=== PATIENT | female | born 1960 | race Caucasian/White ===

== ENCOUNTER 2024-01-06 23:34 | Inpatient (IN) | payer MEDICARE, MEDICAID, SELFPAY ==
[2024-01-06] VITALS (19 sets, daily range): BP systolic 95–143; BP diastolic 82–114; BMI 32.0
[2024-01-06 20:57] LABS: % Basophils 0.5 % (0-2); % Eosinophils 0.2 % (0-6); % Immature Granulocytes 0.4 % (0-0.5); % Lymphocytes 8.5 % (20.5-51.1); % Monocytes 8.5 % (1.7-9.3); % Neutrophils 81.9 % (42.2-75.2); Absolute Basophils 0.1 10^3/uL (0-0.2); Absolute Immature Granulocytes 0.1 10^3/uL (0-0.05); Absolute Lymphocytes 1.1 10^3/uL (1.2-3.4); Absolute Monocytes 1.1 10^3/uL (0.1-0.6); Absolute Neutrophils 10.9 10^3/uL (1.4-6.5); Hematocrit 40.8 % (37.0-47.0); Hemoglobin 12.9 g/dL (12.0-16.0); Mean Corp Hgb Conc. 31.6 g/dL (33.0-37.0); Mean Corpuscular Hgb 24.4 pg (27.0-31.0); Mean Corpuscular Volume 77.1 fL (81.0-99.0); Mean Platelet Volume 11.3 fL (7.4-10.4); Nucleated Red Blood Cells % 0 %; Platelet Count 401 10^3/uL (130-400); Red Blood Cell Count 5.29 10^6/uL (4.20-5.40); Red Cell Dist. Width 16.2 % (11.5-14.5); White Blood Cell Count 13.4 10^3/uL (4.8-10.8)
--- NOTE | 2024-01-06 21:06 | ED.GENMED ---
History of Present Illness
General
Chief Complaint: Breathing Problem
Source: patient and other
Exam Limitations: none
Time Seen by Provider: 01/06/24 21:06
History of Present Illness
History of Present Illness:
63-year-old female short of breath for months. History of atrial fibrillation. She cannot feel the irregular heartbeat at this time but feels like she has been at significantly over the last 2 months. No chest pain no fever progressive shortness
of breath with exertion
Past History
Past History
ED Past Medical History: Arrthythmia, NIDDM and Other (Alcohol/substance abuse)
Review of Systems
Review of Systems
All Other Systems: Not applicable
Constitutional: Denies fever or chills
Cardiac: Denies chest pain or syncope
Phy Exam
Physical Exam
Physical Exam:
GENERAL: Alert and oriented in no apparent distress
EYE: Orbits normal.
NECK: Supple, no thyroid palpable
ENT: Pharynx without erythema
CARDIAC: Tachycardic and irregular
LUNGS: Moderate tachypnea with exertion. Moderate pursed lip breathing. Bilateral rails
ABDOMEN: Soft, without focal tenderness or distention
NEUROLOGICAL: Alert and oriented , grossly non-focal
SKIN: Warm and dry, no rash or lesion, no discoloration, skin intact.
MUSCULOSKELETAL: Mild bilateral lower extremity pitting edema,no deformity.Good color
PSYCH: Normal and appropriate interaction.
Scores
Heart Failure Risk
Heart Failure Risk Score: Yes
History of Stroke or TIA: No
History of intubation for respiratory distress: No
Heart rate on ED arrival >/= 110: Yes
SaO2 <90% on arrival on room air: No
HR >/=110 during 3min walk test (or too ill to perform test): Yes
ECG has acute ischemic changes: No
Urea >/=12mmol/L (BUN 33.6mg/dL): No
Serum CO2>/=35mmol/L: No
Troponin I or T elevated to MO Level (0.4mg/dL): No
NT-proBNP >/=5,000ng/L (5,000pg/ml): Yes
HF Risk Score: 3
Admission Status: HIGH RISK 15.9% Consider SNF treatment or admission to hospital
Course
Orders/Labs/Results
Orders:
Orders
01/06/24 20:35
Electrocardiogram (*1) Urgent
Reason for Study: Abdominal Pain
EKG- Treatment ONCE
01/06/24 20:51
Complete Blood Count/With Diff Urgent
Comprehensive Metabolic Panel Urgent
Lipase Urgent
Comment: ADDON
TSH Reflex To Free T4 Urgent
Comment: ADDON
01/06/24 21:20
Add On- LAB Urgent
Tests Added?: Probnp.lipase. tsh reflex t4
CXR Port [CR Chest Portable - 1 View] Urgent
Comment:
Reason For Exam: sob
Reason Study Needs to be Portable: Unable to Transport
01/06/24 21:37
NT-proBNP Urgent
Comment: ADDON
Troponin I Urgent
01/06/24 21:46
Diltiazem 125 mg/125 ml Nss [Cardizem] 125 mg in 125 ml IV NOW
Initial dose in mg/hr, then titrate:: 5
Titrate to keep:: Heart rate 80-100 bpm
Titrate by mg/hr:: 5 mg/hr
Frequency of titrations (minutes):: 15
Maximum dose in mg/hr:: 15
Diltiazem HCl [Cardizem] 10 mg IV NOW STA
01/06/24 22:13
Furosemide [Lasix] 40 mg IV NOW STA
01/06/24 23:00
Admit/Transfer Patient As Directed
Co-Sign Provider:
Level of Care: Inpatient admission
Assign to:: IVU
Physician / Group: Hospitalist
Diagnosis: Rapid atrial fibrillation, CHF
Reason for Hospitalization: Uncontrolled AFIB, CHF
Expected length of stay greater than two midnights?: Yes
ELOS- Estimated Length of Stay in days: 2
I certify the patient meets the requirements for IP care: Yes
Flush (0.9% Sodium Chloride) [Flush (Nss)] See Dose Instructions IV PER PROTOCOL
PRN Pain Medication Management As Directed
May give lesser potent ordered pain med per pt: Yes
preference::
Protocol:: Medication orders for pain may be administered in a
manner that supports deferring to patient preference
when the pt is:
- Requesting an ordered lesser potent pain medication.
Least to most potent pain medications are defined
as: acetaminophen < NSAID < tramadol < opioids
(morphine, oxycodone, hydromorphone).
- Requesting a lesser dose of the same medication IF
ORDERED.
- Requesting a less intrusive route of administration
if both routes are prescribed by the provider (PO <
IV).
01/06/24 23:01
Code Status As Directed
Resuscitation Status: Full Code
Abnormal Lab Results
01/06/24 01/06/24
20:51 21:37
WBC 13.4 H 10^3/uL
(4.8-10.8)
MCV 77.1 L fL
(81.0-99.0)
MCH 24.4 L pg
(27.0-31.0)
MCHC 31.6 L g/dL
(33.0-37.0)
RDW 16.2 H %
(11.5-14.5)
Plt Count 401 H 10^3/uL
(130-400)
MPV 11.3 H fL
(7.4-10.4)
Abs Immat Gran (auto) 0.1 H 10^3/uL
(0-0.05)
Absolute Neuts (auto) 10.9 H 10^3/uL
(1.4-6.5)
Absolute Lymphs (auto) 1.1 L 10^3/uL
(1.2-3.4)
Absolute Monos (auto) 1.1 H 10^3/uL
(0.1-0.6)
Neutrophils % 81.9 H %
(42.2-75.2)
Lymphocytes % 8.5 L %
(20.5-51.1)
Potassium 5.4 H mmol/L
(3.5-5.1)
Carbon Dioxide 21 L mmol/L
(22-30)
BUN 21 H mg/dl
(7-17)
Glucose 136 H mg/dl
(70-99)
Total Bilirubin 1.9 H mg/dl
(0.2-1.3)
AST 48 H U/L
(14-36)
ALT 40 H U/L
(0-35)
Troponin I 0.084 H* ng/ml
01/06/24 20:51
01/06/24 20:51
Vital Signs
Initial and Last Documented VS:
Initial Vital Signs
Temp Pulse Resp BP Pulse Ox
98 F 122 18 143/100 99
01/06/24 20:36 01/06/24 20:36 01/06/24 20:36 01/06/24 20:36 01/06/24 20:36
Last Documented Vital Signs
Temp Pulse Resp BP Pulse Ox
98 F 117 23 138/96 95
01/06/24 20:36 01/07/24 00:31 01/07/24 00:15 01/07/24 00:31 01/07/24 00:10
*Radiology
Radiology exam reviewed: preliminary read by ED provider (CHF)
*Pulse Oximetry
Patient hypoxic: no
*EKG
Interpreted by ED Provider?: Yes
Interpretation: abnormal
Comparison EKG: no comparison EKG present
Heart Rate: 141
Rate: tachycardiac
Rhythm: atrial flutter
[place]: normal axis
Interval: normal interval
QRS Pattern: normal QRS
Ischemia: non-specific ST changes
*Critical Care Note
Total Time (30-74mins, 75-104mins- exclusive of procedures): 45
Update Note
Update Note:
Heart rate being monitored while Cardizem is being given. Heart rate down to about 110-115. Lasix ordered. Blood pressure transiently low but rebounded.
ED Attending Note
-
Portions of this chart may have been created with voice recognition software.� Occasional wrong word or��sound alike� substitutions may have occurred due to the inherent limitations of voice recognition software.
Discharge Plan
Departure
Patient Disposition: Admit
Date of Disposition: 01/06/24
Time of Disposition: 22:14
Presentation/result/management discussed w/ accepting MD/DO: Hospitalist
Discharge Problem:
Atrial flutter/RVR, CHF
Interventions
Interventions:
*Risk Screen - Suicide Last Done: 01/06/24 20:36
*General Assessment Last Done: 01/06/24 22:12
*Neglect/Abuse Screening Last Done: 01/06/24 22:12
ED- Fall Risk Assessment Last Done: 01/06/24 23:52
*ED COVID-19 Vaccine History Last Done: 01/06/24 22:12
ED- Cardiac Assessment Last Done: 01/06/24 21:46
ED- Pulmonary Assessment Last Done: 01/06/24 21:46
[2024-01-06 21:14] LABS: ALT (SGPT) 40 U/L (0-35); AST (SGOT) 48 U/L (14-36); Albumin 4.4 g/dl (3.5-5.0); Alkaline Phosphatase 78 U/L (38-126); Blood Urea Nitrogen 21 mg/dl (7-17); Calcium 9.7 mg/dl (8.4-10.2); Carbon Dioxide 21 mmol/L (22-30); Chloride 102 mmol/L (98-107); Glucose 136 mg/dl (70-99); Potassium 5.4 mmol/L (3.5-5.1); Sodium 140 mmol/L (135-145); Total Bilirubin 1.9 mg/dl (0.2-1.3); Total Protein 6.6 g/dl (6.3-8.2); eGFR > 60.00
[2024-01-06 22:02] LABS: Lipase 73 U/L (23-300)
[2024-01-06] MEDS: CARDIZEM 10 MG IV (22:04)
[2024-01-06] MEDS: CARDIZEM 125 IV (22:08)
[2024-01-06 22:12] LABS: NT-proBNP 16200 pg/ml; Troponin I 0.084 ng/ml
[2024-01-06 22:43] LABS: TSH Reflex To Free T4 1.03 uIU/ml (0.47-4.68)
--- NOTE | 2024-01-06 22:48 | HPS.HSE ---
Family Physician
-
Family Physician: * NONE
Chief Complaint
-
Lower extremity swelling and shortness of breath
History of Present Illness
This is a 63-year-old female who has prior history of proximal atrial fibrillation hypertension and history of remote opioid dependence on daily methadone who presents to the emergency department with worsening dyspnea on exertion, shortness of
breath and lower extremity swelling.
Patient is a somewhat poor story and. She reports that around September she was seen in the hospital in month mild continue ADINA for similar symptoms. At that time she was diagnosed with rapid atrial fibrillation. She is status post ablation. She
reports that she was placed on medications on anticoagulation. The ablation was not entirely successful at the time and she had recurrent symptoms. She eventually lost to follow-up. She also ran out of her medications including stopping her
anticoagulation. She reports that she recently moved to [place] from [place] and has not been able to fill her prescription medications. She is not aware of all her medications. She reports that she was told she was prediabetes but is not
on any diabetic medications. She was at 1 point on statin but not currently taking any. She denies prior history of hypertension or congestive heart failure.
She reports that she has had dyspnea on exertion over weeks. More recently she been having more shortness of breath at rest and increasing lower extreme edema so she decided to come to the emergency department. She denies having any chest pain
lightheadedness or dizziness. She denies nausea or vomiting. She denies any new drug use. Patient currently staying with the father. Denies tobacco use
Emergency department the patient was afebrile blood pressure was 100/80, she was in rapid A-fib at a rate of 120. Oxygen saturation was 97% on room air. ECG shows atrial flutter with variable conduction and a rate of 141 versus atrial
fibrillation. No acute ST or T wave changes. QT is 450. Chest x-ray shows a small to moderate left pleural effusion and increased interstitial markings and cephalization. No cardiomegaly by my review. She has a white count of 13,000 with normal
hemoglobin and platelet counts. Chemistries are unremarkable. Total bilirubin is slightly elevated at 1.9 with some slight uptake in LFTs. Troponin is 0.084. BNP was elevated at 16,000. TSH within normal limits.
Medical History
Past Medical History
Past Medical History: Reports Arrhythmia (paroxysmal atrial fibrillation s/p ablation) and Hypercholesterolemia
Past Surgical History: Reports None
Social History
Tobacco: Former Smoker
Alcohol: None
Drug: Former User (opioid dependence)
Personal: Single
Living: With Family
Employment: Not Employed
Family History
Family History: Not pertinent
Allergies / Home Medications
Allergies reflects when Allergies were last updated in [facility].
Home Medications with original date entered in [facility]
Allergy/Medication List:
Allergies
Allergy/AdvReac Type Severity Reaction Status Date / Time
No Known Allergies Allergy Unverified 01/06/24 20:35
Home Medications
methadone 27 mg DAILY 01/06/24
metoprolol succinate 100 mg tablet,extended release 24 hr 100 mg PO DAILY 01/06/24
Review of Systems
-
History Source: Patient
Constitutional: Reports No Symptoms
EENT: Reports No Symptoms
Respiratory: Reports Trouble Breathing
Abdomen/GI: Reports No Symptoms
: Reports No Symptoms
Musculoskeletal: Reports Edema
Skin: Reports No Symptoms
Neurological: Reports No Symptoms
Endocrine: Reports No Symptoms
Hematologic/Lymphatic: Reports No Symptoms
Psych: Reports No Symptoms
Physical Exam
Vital Signs
Vital Signs
Temp Pulse Resp BP Pulse Ox
98 F 115 22 122/82 96
01/06/24 20:36 01/06/24 22:27 01/06/24 22:27 01/06/24 22:27 01/06/24 22:27
Physical Exam
General: Well Developed, Well Nourished, No Apparent Distress and Comfortable
HEENT: NormoCephalic, Anicteric, Moist mucous membranes and Atraumatic
Respiratory: Clear
Cardiac: S1/S2, Irregular Rhythm and Tachycardia
Breast: Deferred by me
GI: Soft, Non Tender, Non Distended and Normal Bowel Sounds
Rectal: Deferred by Provider
Genito-urinary: Deferred by me
Musculoskeletal: No Clubbing, No Cyanosis, Edema, Left Lower Extremity and Edema, Right Lower Extremity
Skin: Warm
Neuro: AO x 3
Hematologic/Lymphatic: No Lymphadenopathy
Psych: Calm
Laboratory Results
-
01/06/24 20:51
01/06/24 20:51
Laboratory Results
Total Bilirubin 1.9 mg/dl (0.2-1.3) H 01/06/24 20:51
AST 48 U/L (14-36) H 01/06/24 20:51
ALT 40 U/L (0-35) H 01/06/24 20:51
Alkaline Phosphatase 78 U/L (38-126) 01/06/24 20:51
Troponin I 0.084 ng/ml H* 01/06/24 21:37
Lipase 73 U/L (23-300) 01/06/24 20:51
Data Reviewed
-
Diagnostic Radiology: Image Personally Visualized and interpreted
Medical Tests (Nuc Med, Echo, EKG etc): Image Personally Visualized and interpreted
Lab Data: Labs Reviewed by me
Old Records: Requested
Impression/Plan
-
IMPRESSION:
63-year-old female with past medical history of opiate dependence currently on methadone, history of paroxysmal atrial fibrillation status post ablation in who presented to the emergency department with worsening dyspnea on exertion,
shortness of breath and increasing lower extremity edema. Comes into the emergency department and found to be in rapid atrial fibrillation at a rate of 141, mild troponin elevation of 0.084, found to have pulmonary edema on chest x-ray. Has
elevated BNP.
PLAN:
1. Uncontrolled AFIB -patient with uncontrolled A-fib likely secondary to medication noncompliance. History of ablation in September. History of anticoagulation but not currently anticoagulated or on any medication for her cardiac condition. Currently
hemodynamically stable but in obvious symptomatic congestive heart failure.
- admit to IVU
- continue diltiazem gtt for now
- restart low dose metoprolol with hold parameters
- AC with apixaban for now depending on repeat troponin
- npo except meds tonight pending possible need for cardioversion
- cardiology consultation.
2. ACHF - Likely secondary to uncontrolled afib. No prior h/o overt CHF.
- lasix 40mg in ED, will continue 40mg iv daily for now
- metoprolol as above
- holding further GDMT pending echo
- pending echo may benefit from SGLT II addition
3. Troponin Elevation - Trop 0.084. No acute ischemia on ECG. Suspect rate related elevation. No chest pain.
- aspirin 324 x 1
- trend troponin
- will start apixaban in am if trop stable otherwise will place on heparin gtt
4. Medical eval
- check u/a lipid panel and a1c for possible DM II
5. Methadone
- continue 25mg daily
- monitor qtc (currently 456)
DVT PPX - on ac
Code Status - Full Code
--- NOTE | 2024-01-06 22:48 | PHANOTE ---
med rec tech(01/06/24)-Patient unable to recall her medications, left her list at home. Not pharmacy records in [facility] and no [facility] records due to her recent moving here from [place]. Unable to call previous pharmacy given late time of day. Unable to
complete med rec at this time.
[2024-01-06] MEDS: LASIX 40 MG IV (22:53)
[2024-01-07] VITALS (13 sets, daily range): BP systolic 100–162; BP diastolic 73–149; BMI 28.8; BMI 28.4
--- NOTE | 2024-01-07 01:51 | PTCARENOTE ---
Pt rec'd on unit from ED just before 0100 awake,alert on Iv Cardizem gtt at 15 mg/hr. Afib low 100's on telemetry. Pt voided twice so far on unit post lasix; clear yellow urine. Adm hx taken and recorded. Pt remains npo for poss CV in am.
--- NOTE | 2024-01-07 05:11 | PTCARENOTE ---
Pt remains in afib/flutter with pvc's rates 60-70, Cardizem gtt decreased to 5 mg/hr
--- NOTE | 2024-01-07 05:27 | PTCARENOTE ---
Mehran heard from next patients room, when investigating pt was standing at bedside. She stated 'I'm not sure what happened I think I was too close to edge of bed. Pt reports hitting left knee only. No bruise or swelling noted. Pt denies hitting her
head. vs taken. Pt remains in afib/flutter
[2024-01-07 05:36] LABS: Hematocrit 38.6 % (37.0-47.0); Hemoglobin 12.3 g/dL (12.0-16.0); Mean Corp Hgb Conc. 31.9 g/dL (33.0-37.0); Mean Corpuscular Hgb 24.2 pg (27.0-31.0); Mean Corpuscular Volume 75.8 fL (81.0-99.0); Mean Platelet Volume 11.1 fL (7.4-10.4); Platelet Count 305 10^3/uL (130-400); Red Blood Cell Count 5.09 10^6/uL (4.20-5.40); White Blood Cell Count 9.2 10^3/uL (4.8-10.8)
[2024-01-07 05:47] LABS: Blood Urea Nitrogen 22 mg/dl (7-17); Calcium 9.6 mg/dl (8.4-10.2); Carbon Dioxide 28 mmol/L (22-30); Chloride 98 mmol/L (98-107); Estimated Creatinine Clearance 78 ml/min; Glucose 91 mg/dl (70-99); HDL Cholesterol 35 mg/dl; LDL Cholesterol, Calculated 89 mg/dl; Magnesium 1.8 mg/dl (1.6-2.3); Potassium 4.3 mmol/L (3.5-5.1); Sodium 139 mmol/L (135-145); Total Cholesterol 141 mg/dl (50-199); Triglyceride 86 mg/dl (10-149); Very Low Density Lipoprotein 17 mg/dl (0-30); eGFR > 60.00
[2024-01-07 06:02] LABS: Troponin I 0.081 ng/ml
--- NOTE | 2024-01-07 06:24 | W.PN.UPDATE ---
Addendum entered and electronically signed by LORETO Vargas 01/07/24 06:42:
Correction
Patient landed on the LT knee and Redness noted to the LT knee
Original Note:
Update Note
Progress Note Update
-Unwitnessed fall reported by the nursing staff. Patient denies hitting her head.
-Per patient, she was sitting on the edge and the bed and she fell a sleep, landed on her RT knee.
-Patient is alert and oriented x 3, RUE and RLE with FROM. Some redness noted to the RT knee during exam. Denies pain.
-Vital signs within normal limits.
-Fall precautions and neuro check ordered per protocol.
--- NOTE | 2024-01-07 07:31 | CON.CAR ---
Addendum entered and electronically signed by Mala Cuevas DO 01/07/24 18:09:
[facility] and reviewed. Patient was admitted from September 12 to September 16, 2023 with shortness of breath and wheezing for 1 week found to be in atrial fibrillation with rapid ventricular response. She states that she
was diagnosed 3 years ago with rapid atrial fibrillation. At the time of her admission she was not on any medications including anticoagulation. She was seen by cardiology during this hospitalization. She required IV Cardizem drip, 1 dose of
digoxin and IV amiodarone for rapid rates. She had a transesophageal echocardiogram which reported ejection fraction severely reduced estimated 30-35% with normal regional wall motion. Mildly dilated left atrium. No thrombus in left atrial
appendage. Interatrial septum was intact with agitated saline. Right ventricle normal size and function. Mild aortic regurgitation. Moderate mitral regurgitation. Mild tricuspid regurgitation. No pericardial effusion. She subsequently
underwent attempts at DC cardioversion which were unsuccessful at 250 J, 300 J, 360 J x 2. She was discharged on Eliquis 5 mg twice daily, aspirin 81 mg daily, metoprolol 100 mg daily, Entresto, Cymbalta 60 mg daily, Jardiance 10 mg daily,
metformin 1000 mg twice daily, rosuvastatin 5 mg daily and methadone, 26 mg daily. Pertinent lab work: Cholesterol 09/16/2023: Triglycerides 151, cholesterol 138, HDL 32, LDL 95. Hemoglobin 11.3. Platelets 250,000. Hemoglobin A1c 6.1%. Sodium
142, potassium 3.9. BUN/creatinine 13/0.95. LFTs within normal limits. Urine drug screen negative. Alcohol was not elevated . TSH within normal limits. MIXING PLANT OPERATOR swab was unremarkable. Influenza, COVID-negative. Chest x-ray shows enlarged cardiac
silhouette with heart failure.
Discussed prior hospital records and results of current studies with the patient and her father Wojciech who is at bedside. Overall she has little insight into her medical conditions however does state that she plans to stay in this area and is
agreeable to continuing medications and adhere to recommendations.
Plan:
Over the weekend we will continue rate control strategy for atrial fibrillation although may need addition of amiodarone. Continue Eliquis anticoagulation. If rate proved difficult to control could consider PRISCILA cardioversion next week
Toprol XL increased to 50 mg twice daily
Optimize goal-directed medical therapy for systolic heart failure. Continue IV Lasix. Start Farxiga 10 mg daily. Plan to start Entresto 24/26 mg twice daily if blood pressure allows.
Heart failure education
Eventual ischemic evaluation
Discussed the importance of compliance with medications, dietary restrictions, avoidance of alcohol and drugs, and follow-up
Will follow with you
Addendum entered and electronically signed by Mala Cuevas DO 01/07/24 08:36:
I saw and examined the patient.
The Baby Formula Mixer's note was reviewed and I agree with the note.
Comment: Patient is a 63-year-old female with past medical history of paroxysmal atrial fibrillation first diagnosed 3-4 years ago, hypertension, past opioid dependence[IV heroin use >20 year ago and remote poly substance abuse including cocaine]
now on daily methadone [[facility]] presented to ED 01/06/2024 with one week tachycardia, worsening dyspnea on exertion, shortness of breath, and lower extremity edema. She was admitted to [facility] in September for ~3 days with
rapid AF. She underwent a cardioversion and was started on Metoprolol ER 100 mg daily and Eliquis. In October, she relocated to this area from [facility]; she now resided with her father. She self discontinued all
medications in October or November after she ran out and admits that she has a history fo stopping her medications. She is a difficult historian. She was found to be in rapid A-fib with a heart rates up to 140 bpm. Troponin was 0.084, BNP 16,000, TSH
within normal limits. Chest x-ray showed small to moderate left pleural effusion and increased interstitial markings. She reports impporved edma and SOB with IV lasix yesterday. No chest pain/pressure, or current palpitation. No hx of bleeding on
OAC, CVA/TIA, cardiomyopathy or known CAD.
GEN: No distress, awake, Ox3. poor eye contact; skin picking during interview
HEENT: mmm
LUNGS: CTA, no wheezes/rales
CV: irreg, irreg, S1/S2, no murmur
ABD: soft, BS+, NT/ND
EXT: 1+ B/L LE edema
NEURO: Gross non-focal
Plan:
Plan:
1. Afib with hx PAF
-Plan fo rate control strategy until she demonstrates compliance
-rate controlled on Cardizem 5 mg/hr -will wean off and restart Toprol at 50 mg, watch HRs, if needed can uptitrate to 100 mg daily.
-started Eliquis 5 mg bid
-check echo today
-f/u with [facility] 2 weeks after discharge
-If AF persists, can plan for cardioversion, once anticoagulated x 3-4 weeks with no interruptions in anticoagulation
-Obtain OP records
2. HF in setting of rapid AF
-BNP 39196
-cont IV diuresis nexy 24-48 hours; anticipate transition to oral lasix
-echo today
-further med guidance based on results of echo
3. troponin elevation, suspect non-CT related in setting of HF/rapid AF
-no anginal symptom
-trend trop
-Consider OP ischemic evaluation
Try to obtain records from [facility] i
Original Note:
Consultation
Consultation Request
Date/Time Consultation Requested: 01/07/24104
Date/Time Consultation Performed: 01/07/24 0730
Requesting Provider: Dr Tucker
Performing Provider: LORETO Rosas for Dr Cuevas
Reason for Consultation: afib, heart failure
Medical History
-
Chief Complaint: LE edema and shortness of breath
History of Present Illness:
63-year-old female with past medical history of paroxysmal atrial fibrillation, hypertension, past opioid dependence now on daily methadone presented to ED 01/06/2024 with worsening dyspnea on exertion, shortness of breath, and lower extremity
edema. She was found to be in rapid A-fib with a heart rates up to 140 bpm. Troponin was 0.084, BNP 16,000, TSH within normal limits. Chest x-ray showed small to moderate left pleural effusion and increased interstitial markings.
She reports having atrial fibrillation 3 to 4 years ago and again in September 2023, when was seen at [facility]. She underwent a cardioversion and was started on Metoprolol ER 100 mg daily and Eliquis. It sounds like she stopped Eliquis
after 4-6 weeks after she ran out of pills but has continued on Metoprolol.
She was previously living in [place] and recently moved in with her father in this area. She had been homeless and living in motels for months prior to moving in with her father.
She was started on apixaban and diltiazem drip. She remains in atrial fibrillation with heart rates in the 80s to low 100s.
Past medical history:
Paroxysmal atrial fibrillation, status post cardioversion 10/03 at [facility], also with episode/hospitalization for afib 'a few years ago'
Hypertension
Hyperlipidemia
pre-DM
Former smoker
Former polysubstance drug abuse, currently on daily methadone
Depression
ADHD
Past Medical History
Past Medical History: Other (as above)
Past Surgical History: None
Social History
Tobacco: Former Smoker
Alcohol: None
Drug: Former User (Cocaine)
Personal: Single
Living: With Family
Family History
Family History: Reviewed & Not Pertinent
Allergies / Home Medications
Allergy/AdvReac Type Severity Reaction Status Date / Time
No Known Allergies Allergy Verified 01/07/24 01:30
�Medication �Instructions �Recorded �Confirmed �Type
methadone 27 mg DAILY Substance abuse 01/06/24 History
disorder
metoprolol succinate 100 mg 100 mg PO DAILY Blood Pressure 01/06/24 History
tablet,extended release 24 hr
Review of Systems
-
History Source: Patient
All other systems: Negative unless noted
Physical Exam
Vital Signs
Temp Pulse Resp BP Pulse Ox
98.0 F 83 18 122/88 95
01/07/24 04:55 01/07/24 05:00 01/07/24 04:55 01/07/24 04:54 01/07/24 04:55
Lab Results
01/07/24 05:02
01/07/24 05:02
Troponin I 0.081 ng/ml H* 01/07/24 05:02
Zyy-V-Irvavluzqgu Pept 48630 pg/ml 01/06/24 21:37
GEN: No distress, awake, Ox3
HEENT: supple, anicteric, mmm
LUNGS: CTA, no wheezes/rales
CV: irreg, irreg, S1/S2, no murmur
ABD: soft, BS+, NT/ND
EXT: 1+ B/L LE edema
NEURO: Gross non-focal
SKIN: No rash
Impression / Plan
-
PCP:seeing new PCP with DH on 01/10/24- looks like set up with [facility] Burg[facility] at [facility]
Primary mover helper:none
Impression:
A-fib with rapid ventricular response
Hypertension
Troponin elevation
Acute heart failure
pre-DM
Former drug abuse
Cardiovascular studies:
EKG 01/07/2024: Atrial fibrillation with PVC, nonspecific T wave abnormality, heart rate 74 bpm
telemetry: afib HRs 70s-low 100s, occ PVCs
Plan:
1. Afib-
-rate controlled on Cardizem 5 mg/hr -will wean off and restart Toprol at 50 mg, watch HRs, if needed can uptitrate to 100 mg daily. I put in order for Toprol and stopped Cardizem.
-started Eliquis 5 mg bid
-check echo today
-plan for cardioversion, once anticoagulated x 3-4 weeks with no interruptions in anticoagulation
-f/u with [facility] 2 weeks after discharge
-continue diuresis
2. HF-
-BNP 29582
-cont IV diuresis today, then consider transition to oral
-echo today
-further med guidance based on results of echo
3. troponin elevation
-no anginal symptom
-trend trop
Data Reviewed
-
EKG: Report Reviewed by me
Labs: Labs Reviewed by me and Discussed with Physician
--- NOTE | 2024-01-07 09:30 | CM ---
Addendum entered by Stephie De Jesus 01/07/24 16:08:
Telephone call to her insurance to check on co-pay for Entresto and Farxiga. Entresto and Farxiga both need a prior auth. Prior auth phone number is [phone]. After the prior auth. is completed and approved the medications Entesrto is $4.60 and
Farxiga is $4.60. Placed the one month free coupons for Entresto and Farxiga in her red discharge folder. Updated attending.
Addendum entered by Stephie De Jesus 01/07/24 11:21:
Telephone call to [facility] mail order to check on co-pay for Eliquis 5 mg po bid. Her co-pay would be $4.60 for a 90 day mail order and $4.60 for a thirty day supply via retail. Met with Ms. Khalil to review co-pay. She is agreeable to the
co-pay. Placed the one month free card in her red discharge folder.
Original Note:
Reviewed chart. Met with [facility] to review discharge plans. She states prior to admission she resides with her father and his spouse in a two story home with four steps to enter. She states she has a full flight of steps to get to bedroom/full
bathroom. She states there is a powder room on the first floor. She states prior to admission she was independent with ambulation and adls. She states she has a prescription plan and uses [facility]. She states she goes to the [facility]
in [place], [place] to rock picker her Methadone. She goes every two weeks to rock picker her Methadone. She states she has her Methadone for this weekend. Medical work-up in progress. The discharge plan is to return home with her father and his spouse
when medically stable.
[2024-01-07] MEDS: LASIX 40 MG IV (10:41)
[2024-01-07] MEDS: TOPROL XL 50 MG PO ×2 (10:41→20:15)
[2024-01-07] MEDS: ELIQUIS 5 MG PO ×2 (10:41→20:15)
[2024-01-07] MEDS: METHADONE 100 MG/10 ML 26 MG PO (10:42)
[2024-01-07 11:39] LABS: Urine Albumin Negative (Neg - Trace); Urine Bilirubin Negative (Negative); Urine Character Slightly Cloudy (Clear); Urine Color Yellow; Urine Glucose Negative (Negative); Urine Ketone Negative (Negative); Urine Leukocyte 2+ (Negative); Urine Nitrite Negative (Negative); Urine Occult Blood Trace (Negative); Urine Urobilinogen Negative (Neg - 1+); Urine pH 6.5 (5.0-9.0)
[2024-01-07 12:14] LABS: Urine Squamous Cell 16-20 /LPF (Few); Urine Urothelial Cell 0-2 /LPF (FEW)
[2024-01-07 12:15] LABS: Urine White Cell 30-40 /HPF (0-5)
--- NOTE | 2024-01-07 15:37 | W.PN.HOSP.TC ---
Today's Communication/Plan
-
monitor HR- titrate up bb as needed
anticoag
Lasix
SGLT2i and Entresto pricing
Assessment / Plan
Assessment / Plan
Physical Exam
General: Well Developed, Well Nourished, No Apparent Distress and Comfortable
HEENT: NormoCephalic, Anicteric, Moist mucous membranes and Atraumatic
Respiratory: Clear
Cardiac: S1/S2, Irregular Rhythm and Tachycardia
Breast: Deferred by me
GI: Soft, Non Tender, Non Distended and Normal Bowel Sounds
Rectal: Deferred by Provider
Genito-urinary: Deferred by me
Musculoskeletal: No Clubbing, No Cyanosis, Edema, Left Lower Extremity and Edema, Right Lower Extremity
Skin: Warm
Neuro: AO x 3
Hematologic/Lymphatic: No Lymphadenopathy
Psych: Calm
63-year-old female with past medical history of opiate dependence currently on methadone, history of paroxysmal atrial fibrillation status post ablation in September/October who presented to the emergency department with worsening dyspnea on exertion,
shortness of breath and increasing lower extremity edema. Comes into the emergency department and found to be in rapid atrial fibrillation at a rate of 141, mild troponin elevation of 0.084, found to have pulmonary edema on chest x-ray. Has
elevated BNP.
PLAN:
1. PAF
-non compliance
-Ablation in september
-stop amio ggt, restart Toprol
-Eliquis 5mg BID
-ECHO f/u
-[facility] cards 2 weeks post dc
-If AF persists, can plan for cardioversion, once anticoagulated x 3-4 weeks with no interruptions in anticoagulation
#Acute HFrEF
--Likely secondary to uncontrolled afib and non compliance
-EF - 20-25%
-- will continue 40mg iv daily for now
- metoprolol as above
- initiate GDMT as per cards; entresto and sgtl2i pricing
-
# Troponin Elevation
-most likely non ischemic myocardial injjury
- Trop 0.084. No acute ischemia on ECG. Suspect rate related elevation. No chest pain.
- Cardiac work up outpatient
-trend trop
- trend troponin
- will start apixaban in am if trop stable otherwise will place on heparin gtt
#Valvular abnormalities
-Moderate mitral regurgitation
-Moderate to severe tricuspid regurgitation
� Continue to monitor with diuresis
#Opiate use
-Methadone
- continue 26mg daily
DVT PPX - on ac
Code Status - Full Code
Total time spent on today's encounter was 55 minutes which included time spent in counseling the patient/family regarding diagnosis and treatment plan as listed above, goals of care, and symptom management. Case was discussed with nursing staff,
specialists, and care coordinators/case management. All labs and imaging personally reviewed by me. Remainder the time spent in detailed review of previous records, lab data, imaging, and other medical provider documentation.
Anticipated Discharge: 24 - 48 hours
Subjective/Interval History
-
Date of Service: January 07, 2024
sob improved
Objective Data
-
Labs:
Laboratory Results
01/07/24
05:02
WBC 9.2
Hgb 12.3
Hct 38.6
Plt Count 305 D
Sodium 139
Potassium 4.3
Chloride 98
Carbon Dioxide 28
BUN 22 H
Creatinine 0.7
Glucose 91
Calcium 9.6
Vital Signs:
Vital Signs
Temp Pulse Resp BP Pulse Ox
97.7 F 111 16 110/85 91
01/07/24 12:25 01/07/24 12:31 01/07/24 12:25 01/07/24 12:31 01/07/24 12:27
I&O
01/06/24 01/07/24 01/08/24
06:59 06:59 06:59
Intake Total 80 / 80 740 / 740
Output Total 2300 / 2300 1850 / 1850
Balance -2220 / -2220 -1110 / -1110
Review of Systems
-
History Source: Patient
All other systems: Not reviewed unless documented
Data Reviewed
-
Diagnostic Radiology: Image personally visualized and interpreted and Report Reviewed by me
Labs: Labs Reviewed by me
--- NOTE | 2024-01-07 16:38 | W.PN.UPDATE ---
Update Note
Progress Note Update
Echo today 01/07/24: EF 20-25%, mod MR, mod-sev TR, RVSP 50-55.
Continue IV Lasix
pt already on Toprol and dose doubled for better rate control of afib
plan to start Entresto, BPs were 110s/ today so will wait to start since already increasing Toprol today.
monitor BPs and if okay start Entresto over weekend.
eventually consider Farxiga.
Concerned about med compliance with initiation of multiple new meds this admission and may want to keep medication regimen as simple as possible.
[2024-01-07] MEDS: CRESTOR 10 MG PO (18:06)
--- NOTE | 2024-01-07 18:28 | PTCARENOTE ---
Pt remains in atrial fib at a rate of 90-110 at rest and up to 130's with activity, occasional PVC's noted. Cardizem infusion off, pt taking toprol. Pt diuresing well after lasix. CHF guidelines reviewed with pt who needs much reinforcement , also
reinforced need for pt to consistently take her prescribed medicines in the future, she is in agreement. Fall precautions reinforced with pt , she walks with a steady gait.
--- NOTE | 2024-01-07 21:43 | PTCARENOTE ---
Pt rec'd at change of shift resting in bed no complaints Afib on telemetry with rates 90 to low 100. No c/o palpitations, sob or discomfort. neuro check unchanged. Pt maintained on fall risk precautions. gait remains steady when ambulating to
bathroom. call de la vega within reach
[2024-01-08] VITALS (7 sets, daily range): BP systolic 100–138; BP diastolic 57–124; BMI 28.1
[2024-01-08 04:32] LABS: Hematocrit 37.9 % (37.0-47.0); Hemoglobin 12.2 g/dL (12.0-16.0); Mean Corp Hgb Conc. 32.2 g/dL (33.0-37.0); Mean Corpuscular Hgb 24.3 pg (27.0-31.0); Mean Corpuscular Volume 75.3 fL (81.0-99.0); Mean Platelet Volume 10.8 fL (7.4-10.4); Platelet Count 302 10^3/uL (130-400); Red Blood Cell Count 5.03 10^6/uL (4.20-5.40); Red Cell Dist. Width 16.1 % (11.5-14.5); White Blood Cell Count 7.7 10^3/uL (4.8-10.8)
[2024-01-08 04:52] LABS: Blood Urea Nitrogen 31 mg/dl (7-17); Calcium 9.2 mg/dl (8.4-10.2); Carbon Dioxide 32 mmol/L (22-30); Chloride 97 mmol/L (98-107); Estimated Creatinine Clearance 60 ml/min; Glucose 104 mg/dl (70-99); Potassium 4.6 mmol/L (3.5-5.1); Sodium 138 mmol/L (135-145); eGFR > 60.00
--- NOTE | 2024-01-08 07:19 | W.PN.CARDCBS ---
Addendum entered and electronically signed by Toni Alaniz MD 01/08/24 09:36:
I saw and examined the patient.
The Pressure Supervisor's note was reviewed and I agree with the note.
Comment:
GEN: No distress, awake, Ox3
HEENT: supple, anicteric, mmm
LUNGS: CTA, no wheezes/rales
CV: Irreg, S1/S2, /6 syst LSB, no gallop
ABD: soft, BS+, NT/ND
EXT: No edema
NEURO: Gross non-focal
SKIN: No rash
Plan:
Remains in A-fib with borderline elevated rates. Will increase Toprol to 75 mg p.o. twice daily.
Continue Farxiga. Will also attempt to add Entresto and watch for hypotension.
Continue Lasix 40 mg IV daily. Creatinine remains normal. May need to switch to oral Lasix in a.m.
I reviewed records. At this point I will hold off on cardioversion attempt and have her reevaluated in the office for a second cardioversion.
There is an interaction between amiodarone and methadone so we will hold off on amiodarone for now.
Original Note:
Today's Communication / Plan
-
Start Entresto 24/26 mg BID and hold for SBP less than 100
Cont Toprol XL and Farxiga
Cont attempts at IV diuresis and will follow BMP, dry weight unknown
Impression / Plan
-
PCP: scheduled to see new PCP at [facility], [facility] on 01/10/24
Primary steel molder: none prior to admission
Impression:
Afib with RVR on admission
Paroxysmal to persistent Afib
unsuccessful PRISCILA/CV at [facility] 09/2023
Elevated Troponin
Acute on chronic HFrEF
CM EF 30-35% by PRISCILA at [facility] 09/16/23 and down to 20-25% by echo at 01/07/24
Hypertension
Troponin elevation
h/o opiate use disorder now on daily methadone
Hyperglycemia and pre-diabetes with HgbA1c 6%
PRISCILA 09/2023: [facility] study, EF 30-35%, no WMA, no AMINTA thrombus, interatrial septum was intact with agitated saline, normal RV size and function, mild aortic regurgitation, mod MR, mild TR, no pericardial effusion.
Echo 01/07/24: EF 20-25%, mod MR, mod-sev TR, RVSP 50-55.
Plan:
-Records obtained and patient previously had attempted PRISCILA/CV at [facility] in [place], [place] 09/2023, but CV was not successful at 250 J, 300 J and then 360 J x 2. She was d/c'd to home on Eliquis 5 mg BID, aspirin 81 mg daily, Toprol XL 100
mg daily, Entresto unknown dose BID, Cymbalta 60 mg daily, Jardiance 10 mg daily, metformin 1000 mg BID, rosuvastatin 5 mg daily and methadone, 26 mg daily. Patient eventually ran out of meds and stopped taking them. Patient then moved from [place] to
live with her father locally and she was brought to [facility] 01/06/24.
-After reviewing previous medical records it sounds like patient is more persistent Afib. Will continue rate control efforts through the weekend. Patient had an attempt at rhythm control with a PRISCILA/CV at [facility] 09/2023 and failed to convert
despite 250 Jx1 , 300 J x1 and then 360 J x 2. If rate control is insufficient then could make another attempt at rhythm control and possibly add an AAD.
-Cont Eliquis 5 mg BID (age 63, Cre 0.9), appreciate help of CM on checking cost which will only be $4.60 for a 90 day supply at her mail away pharmacy or same lundberg for a 30 day supply at local pharmacy
-Cont Toprol XL 50 mg BID
-Patient with acute HF on admission. EF now 20-25% and was 30-35% earlier this year. Patient previously treated with Toprol XL, Entresto and Jardiance.
-Will start Entresto 24/26 mg BID and hold for SBP less than 100. Entresto will also be $4.60 90 day mail away or 30 day local.
-New to Farxiga 10 mg daily and patient previously tolerated Jardiance. Farxiga will also be $4.60 90 day mail away or 30 day local.
-Weight is down 3 lbs with Lasix 40 mg IV daily. Cre stable at 0.9. Patient was not taking a diuretic prior to admission. Dry weight unknown and pro-BNP [place] [address] on admission. Will IV diurese and follow BMP
-Troponin was 0.084 on admission without chest pain or WMA on echo. Will manage as a nonischemic myocardia injury Troponin elevation
HPI: 63-year-old female with past medical history of paroxysmal atrial fibrillation, hypertension, past opioid dependence now on daily methadone presented to ED 01/06/2024 with worsening dyspnea on exertion, shortness of breath, and lower
extremity edema. She was found to be in rapid A-fib with a heart rates up to 140 bpm. Troponin was 0.084, BNP 16,000, TSH within normal limits. Chest x-ray showed small to moderate left pleural effusion and increased interstitial markings.
She reports having atrial fibrillation 3 to 4 years ago and again in September 2023, when was seen at [facility]. She underwent a cardioversion and was started on Metoprolol ER 100 mg daily and Eliquis. It sounds like she stopped Eliquis
after 4-6 weeks after she ran out of pills but has continued on Metoprolol.
She was previously living in [place] and recently moved in with her father in this area. She had been homeless and living in motels for months prior to moving in with her father.
Progress Note - Delinquent Notice Machine Operator
Subjective
Date of Service: January 08, 2024
She feels well, trying to order breakfast
Objective
Labs:
01/08/24 03:46
01/08/24 03:46
Labs
Hgb 12.2 g/dL (12.0-16.0) 01/08/24 03:46
Hct 37.9 % (37.0-47.0) 01/08/24 03:46
Plt Count 302 10^3/uL (130-400) 01/08/24 03:46
Sodium 138 mmol/L (135-145) 01/08/24 03:46
Potassium 4.6 mmol/L (3.5-5.1) 01/08/24 03:46
BUN 31 mg/dl (7-17) H 01/08/24 03:46
Creatinine 0.9 mg/dL (0.6-1.0) 01/08/24 03:46
Glucose 104 mg/dl (70-99) H 01/08/24 03:46
Troponins
01/06/24 01/07/24 01/07/24
21:37 05:02 07:05
Troponin I 0.084 H* 0.081 H* Cancelled
01/07/24 01/07/24
15:45 21:45
Troponin I Cancelled Cancelled
Vital Signs and I&O:
Vital Signs
Temp Pulse Resp BP Pulse Ox
97.4 F 76 18 100/73 100
01/08/24 06:57 01/08/24 03:30 01/08/24 06:57 01/07/24 22:31 01/08/24 06:57
Vital Signs
Temp Pulse Resp BP Pulse Ox
97.4 F 76 18 100/73 100
01/08/24 06:57 01/08/24 03:30 01/08/24 06:57 01/07/24 22:31 01/08/24 06:57
Intake & Output
01/06/24 01/07/24 01/08/24 01/09/24
06:59 06:59 06:59 06:59
Intake Total 80 / 80 1100 / 1100
Output Total 2300 / 2300 2725 / 2725
Balance -2220 / -2220 -1625 / -1625
Physical Exam
Physical Exam
GEN: NAD. AAOx3
HEENT: mmm
LUNGS: No audible wheeze
CV: Afib on tele
ABD: ND
EXT: Trace edema B/L
NEURO: Gross non-focal
SKIN: No rash
--- NOTE | 2024-01-08 08:00 | PTCARENOTE ---
resumed care of patient from previous RN. walking rounds completed. AAOx3. VSS. Afib low 100's on telemetry. increasing to 130s with walking. independent in care. keeping lights off and intermittently dozing or in bathroom. BRP/tolerating diet.
will continue to monitor.
[2024-01-08] MEDS: METHADONE 100 MG/10 ML 26 MG PO (09:47)
[2024-01-08] MEDS: FARXIGA 10 MG PO (09:49)
[2024-01-08] MEDS: ELIQUIS 5 MG PO ×2 (09:49→19:59)
[2024-01-08] MEDS: LASIX 40 MG IV (09:49)
[2024-01-08] MEDS: TOPROL XL 25 MG PO (10:00)
[2024-01-08] MEDS: ENTRESTO 24 MG/26 MG 1 TAB PO ×2 (10:00→19:59)
[2024-01-08] MEDS: TOPROL XL PO (10:01)
--- NOTE | 2024-01-08 15:07 | W.PN.HOSP.TC ---
Today's Communication/Plan
-
entresto, sglt2i, inc bb
iv lasix, anticipate switch to po tomorrow
Assessment / Plan
Assessment / Plan
Physical Exam
General: Well Developed, Well Nourished, No Apparent Distress and Comfortable
HEENT: NormoCephalic, Anicteric, Moist mucous membranes and Atraumatic
Respiratory: Clear
Cardiac: S1/S2, Irregular Rhythm and Tachycardia
Breast: Deferred by me
GI: Soft, Non Tender, Non Distended and Normal Bowel Sounds
Rectal: Deferred by Provider
Genito-urinary: Deferred by me
Musculoskeletal: No Clubbing, No Cyanosis, Edema, Left Lower Extremity and Edema, Right Lower Extremity
Skin: Warm
Neuro: AO x 3
Hematologic/Lymphatic: No Lymphadenopathy
Psych: Calm
63-year-old female with past medical history of opiate dependence currently on methadone, history of paroxysmal atrial fibrillation status post ablation in September/October who presented to the emergency department with worsening dyspnea on exertion,
shortness of breath and increasing lower extremity edema. Comes into the emergency department and found to be in rapid atrial fibrillation at a rate of 141, mild troponin elevation of 0.084, found to have pulmonary edema on chest x-ray. Has
elevated BNP.
PLAN:
1. PAF
-non compliance
-Ablation in september
-stop amio ggt, restart Toprol - increase to 75mg bid
-Eliquis 5mg BID
-DCA cards 2 weeks post dc
-no plans for amio with methadone
-Eliquis
#Acute HFrEF
--Likely secondary to uncontrolled afib and non compliance
-EF - 20-25%
-- will continue 40mg iv daily for now
- metoprolol as above
- initiate GDMT, Entresto, farxiga
# Troponin Elevation
-most likely non ischemic myocardial injjury
- Trop 0.084. No acute ischemia on ECG. Suspect rate related elevation. No chest pain.
- Cardiac work up outpatient
-trend trop
- trend troponin
- will start apixaban in am if trop stable otherwise will place on heparin gtt
#Valvular abnormalities
-Moderate mitral regurgitation
-Moderate to severe tricuspid regurgitation
� Continue to monitor with diuresis
#Opiate use
-Methadone
- continue 26mg daily
DVT PPX - on ac
Code Status - Full Code
Anticipated Discharge: Within 24 hours
Subjective/Interval History
-
Date of Service: January 08, 2024
hr still up
Objective Data
-
Labs:
Laboratory Results
01/08/24
03:46
WBC 7.7
Hgb 12.2
Hct 37.9
Plt Count 302
Sodium 138
Potassium 4.6
Chloride 97 L
Carbon Dioxide 32 H
BUN 31 H
Creatinine 0.9
Glucose 104 H
Calcium 9.2
Vital Signs:
Vital Signs
Temp Pulse Resp BP Pulse Ox
97.6 F 113 18 118/80 96
01/08/24 12:53 01/08/24 10:00 01/08/24 12:53 01/08/24 06:55 01/08/24 12:53
I&O
01/07/24 01/08/24 01/09/24
06:59 06:59 06:59
Intake Total 80 / 80 1100 / 1100
Output Total 2300 / 2300 2725 / 2725 350 / 350
Balance -2220 / -2220 -1625 / -1625 -350 / -350
Review of Systems
-
History Source: Patient
All other systems: Not reviewed unless documented
Data Reviewed
-
Diagnostic Radiology: Image personally visualized and interpreted and Report Reviewed by me
Labs: Labs Reviewed by me
--- NOTE | 2024-01-08 16:00 | PTCARENOTE ---
no change from previous assessment.
[2024-01-08] MEDS: CRESTOR 10 MG PO (18:42)
[2024-01-08] MEDS: TOPROL XL 75 MG PO (19:59)
--- NOTE | 2024-01-08 22:34 | PTCARENOTE ---
pt remains in afib rates 90-to low 100's. No complaints from pt other than 'I'm bored and I can't wait to get out'.
[2024-01-09] VITALS (7 sets, daily range): BP systolic 91–114; BP diastolic 52–82; BMI 27.8
--- NOTE | 2024-01-09 03:34 | PTCARENOTE ---
Pt states shes anxious to be discharged. 'I feel 1000% better'. Pt understands the need to take her meds on regular basis to control afib and Eliquis to prevent blood clots or stroke.
[2024-01-09 04:04] LABS: Hematocrit 41.5 % (37.0-47.0); Hemoglobin 13.2 g/dL (12.0-16.0); Mean Corp Hgb Conc. 31.8 g/dL (33.0-37.0); Mean Corpuscular Hgb 23.9 pg (27.0-31.0); Mean Corpuscular Volume 75.2 fL (81.0-99.0); Mean Platelet Volume 10.7 fL (7.4-10.4); Platelet Count 374 10^3/uL (130-400); Red Blood Cell Count 5.52 10^6/uL (4.20-5.40); Red Cell Dist. Width 16.1 % (11.5-14.5); White Blood Cell Count 9.1 10^3/uL (4.8-10.8)
[2024-01-09 04:18] LABS: Blood Urea Nitrogen 33 mg/dl (7-17); Calcium 9.2 mg/dl (8.4-10.2); Carbon Dioxide 30 mmol/L (22-30); Chloride 97 mmol/L (98-107); Estimated Creatinine Clearance 60 ml/min; Glucose 132 mg/dl (70-99); Potassium 4.3 mmol/L (3.5-5.1); Sodium 139 mmol/L (135-145); eGFR > 60.00
[2024-01-09] MEDS: ELIQUIS 5 MG PO ×2 (09:21→19:20)
[2024-01-09] MEDS: TOPROL XL 75 MG PO (09:22)
[2024-01-09] MEDS: LASIX 40 MG PO (09:22)
[2024-01-09] MEDS: FARXIGA 10 MG PO (09:24)
[2024-01-09] MEDS: ENTRESTO 24 MG/26 MG 1 TAB PO (09:24)
[2024-01-09] MEDS: LASIX IV (09:25)
--- NOTE | 2024-01-09 09:28 | W.PN.CARDCBS ---
Today's Communication / Plan
-
Ventricular rates remain elevated. Will hold Entresto and increase Toprol to 100 mg p.o. twice daily.
Holding off on amiodarone because of interaction with methadone.
Continue Eliquis.
Volume status is improved. Continue Lasix 40 mg daily.
Impression / Plan
-
PCP: scheduled to see new PCP at [facility], [facility] on 01/10/24
Primary api architect: none prior to admission
Impression:
Afib with RVR on admission
Paroxysmal to persistent Afib
unsuccessful PRISCILA/CV at [facility] 09/2023
Elevated Troponin
Acute on chronic HFrEF
CM EF 30-35% by PRISCILA at [facility] 09/16/23 and down to 20-25% by echo at 01/07/24
Hypertension
Troponin elevation
h/o opiate use disorder now on daily methadone
Hyperglycemia and pre-diabetes with HgbA1c 6%
PRISCILA 09/2023: [facility] study, EF 30-35%, no WMA, no AMINTA thrombus, interatrial septum was intact with agitated saline, normal RV size and function, mild aortic regurgitation, mod MR, mild TR, no pericardial effusion.
Echo 01/07/24: EF 20-25%, mod MR, mod-sev TR, RVSP 50-55.
Plan:
-Records obtained and patient previously had attempted PRISCILA/CV at [facility] in [place], [place] 09/2023, but CV was not successful at 250 J, 300 J and then 360 J x 2. She was d/c'd to home on Eliquis 5 mg BID, aspirin 81 mg daily, Toprol XL 100
mg daily, Entresto unknown dose BID, Cymbalta 60 mg daily, Jardiance 10 mg daily, metformin 1000 mg BID, rosuvastatin 5 mg daily and methadone, 26 mg daily. Patient eventually ran out of meds and stopped taking them. Patient then moved from [place] to
live with her father locally and she was brought to [facility] 01/06/24.
-After reviewing previous medical records it sounds like patient is more persistent Afib. Will continue rate control efforts through the weekend. Patient had an attempt at rhythm control with a PRISCILA/CV at [facility] 09/2023 and failed to convert
despite 250 Jx1 , 300 J x1 and then 360 J x 2. If rate control is insufficient then could make another attempt at rhythm control and possibly add an AAD.
-Cont Eliquis 5 mg BID (age 63, Cre 0.9), appreciate help of CM on checking cost which will only be $4.60 for a 90 day supply at her mail away pharmacy or same lundberg for a 30 day supply at local pharmacy
-Patient with acute HF on admission. EF now 20-25% and was 30-35% earlier this year. Patient previously treated with Toprol XL, Entresto and Jardiance.
-Ventricular rate still are elevated. Will stop Entresto and increase Toprol to 100 mg p.o. twice daily to try to obtain better rate control. Okay to continue Jardiance for now.
-Volume status is improved to continue Lasix 40 mg p.o. daily.
- Entresto will also be $4.60 90 day mail away or 30 day local.
-New to Farxiga 10 mg daily and patient previously tolerated Jardiance. Farxiga will also be $4.60 90 day mail away or 30 day local.
-Troponin was 0.084 on admission without chest pain or WMA on echo. Will manage as a nonischemic myocardia injury Troponin elevation
HPI: 63-year-old female with past medical history of paroxysmal atrial fibrillation, hypertension, past opioid dependence now on daily methadone presented to ED 01/06/2024 with worsening dyspnea on exertion, shortness of breath, and lower
extremity edema. She was found to be in rapid A-fib with a heart rates up to 140 bpm. Troponin was 0.084, BNP 16,000, TSH within normal limits. Chest x-ray showed small to moderate left pleural effusion and increased interstitial markings.
She reports having atrial fibrillation 3 to 4 years ago and again in September 2023, when was seen at [facility]. She underwent a cardioversion and was started on Metoprolol ER 100 mg daily and Eliquis. It sounds like she stopped Eliquis
after 4-6 weeks after she ran out of pills but has continued on Metoprolol.
She was previously living in [place] and recently moved in with her father in this area. She had been homeless and living in motels for months prior to moving in with her father.
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
Subjective
Date of Service: January 09, 2024
Breathing is overall stable. Denies dizziness but blood pressure is marginal.
Objective
Labs:
01/09/24 03:
01/09/24:
Labs
Hgb 13.2 g/dL (12.0-16.0) 01/09/24 03:
Hct 41.5 % (37.0-47.0) 01/09/24:
Plt Count 374 10^3/uL (130-400) D 01/09/24 03:
Sodium 139 mmol/L (135-145) 01/09/24 03:
Potassium 4.3 mmol/L (3.5-5.1) 01/09/24 03:
BUN 33 mg/dl (7-17) H 01/09/24:
Creatinine 0.9 mg/dL (0.6-1.0) 01/09/24:
Glucose 132 mg/dl (70-99) H 01/09/24 03:29
Troponins
01/06/24 01/07/24 01/07/24
21:37 05:02 07:05
Troponin I 0.084 H* 0.081 H* Cancelled
01/07/24 01/07/24
15:45 21:45
Troponin I Cancelled Cancelled
Vital Signs and I&O:
Vital Signs
Temp Pulse Resp BP Pulse Ox
97.6 F 111 20 98/82 97
01/09/24 07:18 01/09/24 04:15 01/09/24 07:18 01/09/24 03:20 01/09/24 07:18
Vital Signs
Temp Pulse Resp BP Pulse Ox
97.6 F 111 20 98/82 97
01/09/24 07:18 01/09/24 04:15 01/09/24 07:18 01/09/24 03:20 01/09/24 07:18
Intake & Output
01/07/24 01/08/24 01/09/24 01/10/24
06:59 06:59 06:59 06:59
Intake Total 80 / 80 1100 / 1100 150 / 150
Output Total 2300 / 2300 2725 / 2725 1025 / 1025
Balance -2220 / -2220 -1625 / -1625 -875 / -875
Physical Exam
Physical Exam
GEN: No distress, awake, Ox3
HEENT: supple, anicteric, mmm
LUNGS: CTA, no wheezes/rales
CV: irreg, S1/S2, 1/6 syst LSB, no gallop
ABD: soft, BS+, NT/ND
EXT: No edema
NEURO: Gross non-focal
SKIN: No rash
--- NOTE | 2024-01-09 09:42 | PTCARENOTE ---
Pt sitting on side of bed this morning, oriented x3 but occasionally dozing off in sitting position. Encouraged Pt to lay down in bed if she is falling asleep. Pt has tray table in front of her. Pt remains in A-fib 90-110's, HR 130's with activity
at times. BP 114/52
[2024-01-09] MEDS: METHADONE 100 MG/10 ML 26 MG PO (11:29)
--- NOTE | 2024-01-09 14:22 | W.PN.HOSP.TC ---
Today's Communication/Plan
-
Increase metoprolol for elevated heart rate
Switch IV Lasix to p.o.
Hold Entresto for now
Monitor BPs, heart rate
Assessment / Plan
Assessment / Plan
Physical Exam
General: Well Developed, Well Nourished, No Apparent Distress and Comfortable
HEENT: NormoCephalic, Anicteric, Moist mucous membranes and Atraumatic
Respiratory: Clear
Cardiac: S1/S2, Irregular Rhythm and Tachycardia
Breast: Deferred by me
GI: Soft, Non Tender, Non Distended and Normal Bowel Sounds
Rectal: Deferred by Provider
Genito-urinary: Deferred by me
Musculoskeletal: No Clubbing, No Cyanosis, Edema, Left Lower Extremity and Edema, Right Lower Extremity
Skin: Warm
Neuro: AO x 3
Hematologic/Lymphatic: No Lymphadenopathy
Psych: Calm
63-year-old female with past medical history of opiate dependence currently on methadone, history of paroxysmal atrial fibrillation status post ablation in September/October who presented to the emergency department with worsening dyspnea on exertion,
shortness of breath and increasing lower extremity edema. Comes into the emergency department and found to be in rapid atrial fibrillation at a rate of 141, mild troponin elevation of 0.084, found to have pulmonary edema on chest x-ray. Has
elevated BNP.
PLAN:
1. PAF
-non compliance
-Ablation in september
-stop amio ggt, Toprol - increase to 100mg bid
-Eliquis 5mg BID
-DCA cards 2 weeks post dc
-no plans for amio with methadone
-Eliquis
#Acute HFrEF
--Likely secondary to uncontrolled afib and non compliance
-EF - 20-25%
--switch IV lasix to PO as euvolemic and now with elevated HRs and normotensive blowerdline low bp
- metoprolol as above
- initiate GDMT, farxiga
-Hold Entresto
# Troponin Elevation
-most likely non ischemic myocardial injjury
- Trop 0.084. No acute ischemia on ECG. Suspect rate related elevation. No chest pain.
- Cardiac work up outpatient
#Valvular abnormalities
-Moderate mitral regurgitation
-Moderate to severe tricuspid regurgitation
� Continue to monitor with diuresis
#Opiate use
-Methadone
- continue 26mg daily
DVT PPX - on ac
Code Status - Full Code
Anticipated Discharge: 24 - 48 hours
Subjective/Interval History
-
Date of Service: January 09, 2024
Ventricular rate elevated, otherwise appears much more euvolemic
Objective Data
-
Labs:
Laboratory Results
01/09/24
03:29
WBC 9.1
Hgb 13.2
Hct 41.5
Plt Count 374 D
Sodium 139
Potassium 4.3
Chloride 97 L
Carbon Dioxide 30
BUN 33 H
Creatinine 0.9
Glucose 132 H
Calcium 9.2
Vital Signs:
Vital Signs
Temp Pulse Resp BP Pulse Ox
97.6 F 99 20 114/52 97
01/09/24 11:19 01/09/24 10:00 01/09/24 11:19 01/09/24 07:21 01/09/24 11:19
I&O
01/08/24 01/09/24 01/10/24
06:59 06:59 06:59
Intake Total 1100 / 1100 150 / 150
Output Total 2725 / 2725 1025 / 1025
Balance -1625 / -1625 -875 / -875
Review of Systems
-
History Source: Patient
All other systems: Not reviewed unless documented
Data Reviewed
-
Diagnostic Radiology: Image personally visualized and interpreted and Report Reviewed by me
Labs: Labs Reviewed by me
[2024-01-09] MEDS: CRESTOR 10 MG PO (17:57)
[2024-01-09] MEDS: TOPROL XL PO (19:19)
--- NOTE | 2024-01-09 20:14 | PTCARENOTE ---
Pt. received at change of shift. Pt. seen and assessed in room. Pt. AOx3, no complaints of pain at this time. Tele reading Afib with frequent PVCs. 8pm dose of metoprolol held due to SBP less than 95. RN explains plan of care to pt, pt. verbalizes
understanding of plan of care. Call de la vega within reach. Continuing to monitor at this time.
[2024-01-10 02:16] VITALS: BP 111/90
[2024-01-10 02:35] LABS: Hematocrit 43.2 % (37.0-47.0); Hemoglobin 13.6 g/dL (12.0-16.0); Mean Corp Hgb Conc. 31.5 g/dL (33.0-37.0); Mean Corpuscular Hgb 24.1 pg (27.0-31.0); Mean Corpuscular Volume 76.5 fL (81.0-99.0); Mean Platelet Volume 10.5 fL (7.4-10.4); Platelet Count 351 10^3/uL (130-400); Red Blood Cell Count 5.65 10^6/uL (4.20-5.40); Red Cell Dist. Width 15.9 % (11.5-14.5)
[2024-01-10 02:49] LABS: ALT (SGPT) 58 U/L (0-35); AST (SGOT) 37 U/L (14-36); Albumin 4.2 g/dl (3.5-5.0); Alkaline Phosphatase 61 U/L (38-126); Blood Urea Nitrogen 35 mg/dl (7-17); Calcium 9.5 mg/dl (8.4-10.2); Carbon Dioxide 32 mmol/L (22-30); Chloride 99 mmol/L (98-107); Estimated Creatinine Clearance 67 ml/min; Glucose 105 mg/dl (70-99); Potassium 4.5 mmol/L (3.5-5.1); Sodium 139 mmol/L (135-145); Total Bilirubin 0.5 mg/dl (0.2-1.3); Total Protein 6.4 g/dl (6.3-8.2); eGFR > 60.00
[2024-01-10 03:25] VITALS: BMI 27.6
[2024-01-10 06:53] VITALS: BP 130/69
[2024-01-10] MEDS: METHADONE 100 MG/10 ML 26 MG PO (07:46)
[2024-01-10] MEDS: TOPROL XL 100 MG PO (07:47)
[2024-01-10] MEDS: ELIQUIS 5 MG PO ×2 (07:48→19:36)
[2024-01-10] MEDS: LASIX 40 MG PO (07:48)
[2024-01-10] MEDS: FARXIGA 10 MG PO (07:48)
--- NOTE | 2024-01-10 07:57 | W.PN.HOSP.TC ---
Today's Communication/Plan
-
monitor HR on increased Metoprolol at rest and with exertion
F/U further cardiology recommendations
Assessment / Plan
Assessment / Plan
Physical Exam
General: Well Developed, Well Nourished, No Apparent Distress and Comfortable
HEENT: NormoCephalic, Anicteric, Moist mucous membranes and Atraumatic
Respiratory: Clear
Cardiac: S1/S2, Irregular Rhythm and Tachycardia
Breast: Deferred by me
GI: Soft, Non Tender, Non Distended and Normal Bowel Sounds
Rectal: Deferred by Provider
Genito-urinary: Deferred by me
Musculoskeletal: No Clubbing, No Cyanosis, Edema, Left Lower Extremity and Edema, Right Lower Extremity
Skin: Warm
Neuro: AO x 3
Hematologic/Lymphatic: No Lymphadenopathy
Psych: Calm
63-year-old female with past medical history of opiate dependence currently on methadone, history of paroxysmal atrial fibrillation status post ablation in September/October who presented to the emergency department with worsening dyspnea on exertion,
shortness of breath and increasing lower extremity edema. Comes into the emergency department and found to be in rapid atrial fibrillation at a rate of 141, mild troponin elevation of 0.084, found to have pulmonary edema on chest x-ray. Has
elevated BNP.
TTE 01/07/24
CONCLUSIONS
Severely reduced left ventricular systolic function with global hypokinesis
Left ventricular ejection fraction is visually 20-25%.
Normal left ventricular wall thickness.
Biatrial dilatation
Moderate mitral regurgitation.
Aortic sclerosis without stenosis. Mild aortic regurgitation.
Moderate-severe tricuspid regurgitation.
Estimated pulmonary artery pressure of 50-55 mmHg. Assuming a right atrial
pressure of 15 mmHg. The IVC is mildly dilated and does not collapse. I
Pleural effusion present. No pericardial effusion.
No prior study available for comparison.
PLAN:
1. Permanent Atrial Fibrillation
-s/p Ablation in september and attempts at cardioversion
-s/p amio gtt; now on Toprol - increase to 100mg bid
-Eliquis 5mg BID
-DCA cards 2 weeks post dc
-no plans for amio with methadone
#Acute HFrEF
--Likely secondary to uncontrolled afib and non compliance
-EF - 20-25% (was 30-35% earlier this year)
--switch IV lasix to PO, now euvolemic
- metoprolol as above
- initiate GDMT, farxiga
- Hold Entresto to make room in Metop dosing
# Troponin Elevation
-most likely non ischemic myocardial injjury
- Trop 0.084. No acute ischemia on ECG. Suspect rate related elevation. No chest pain.
- Cardiac work up outpatient
#Valvular abnormalities
-Moderate mitral regurgitation
-Moderate to severe tricuspid regurgitation
� Continue to monitor with diuresis
#Opiate use
-Methadone
- continue 26mg daily
DVT PPX - on ac
Code Status - Full Code
Anticipated Discharge: Within 24 hours
Subjective/Interval History
-
Date of Service: January 10, 2024
no new complaints
up sitting in bed with HR low 100's, just took aM medications
Objective Data
-
Labs:
Laboratory Results
01/10/24
02:25
WBC 9.0
Hgb 13.6
Hct 43.2
Plt Count 351
Sodium 139
Potassium 4.5
Chloride 99
Carbon Dioxide 32 H
BUN 35 H
Creatinine 0.8
Glucose 105 H
Calcium 9.5
Total Bilirubin 0.5
AST 37 H
ALT 58 H
Alkaline Phosphatase 61
Vital Signs:
Vital Signs
Temp Pulse Resp BP Pulse Ox
97.6 F 95 16 130/69 97
01/10/24 06:55 01/10/24 07:00 01/10/24 06:55 01/10/24 06:53 01/10/24 06:55
I&O
01/09/24 01/10/24 01/11/24
06:59 06:59 06:59
Intake Total 150 / 150 200 / 200
Output Total 1025 / 1025
Balance -875 / -875 200 / 200
Review of Systems
-
History Source: Patient
All other systems: Reviewed and negative
Data Reviewed
-
Diagnostic Radiology: Report Reviewed by me
Labs: Labs Reviewed by me
--- NOTE | 2024-01-10 08:09 | PTCARENOTE ---
Rec'd Pt this morning, ambulating in room, offers no complaints. She remains in a-fib, at rate 80-110's, up to 130's with activity.
--- NOTE | 2024-01-10 09:29 | W.PN.CARDCBS ---
Addendum entered and electronically signed by Chase Lemus MD 01/10/24 10:54:
Patient seen, interviewed and examined by me.
Fatigued-appearing, no acute distress
Irregular and rapid rate and rhythm with normal S1 and S2, no S3 no S4. There is a grade 1/6 apical holosystolic murmur and no rubs. PMI is normally placed.
Lungs are clear to auscultation bilaterally without wheezes rales or rhonchi.
Abdomen soft nontender nondistended with normoactive bowel sounds
Extremities show trace pretibial edema bilaterally no clubbing or cyanosis.
Neurologic exam is grossly nonfocal.
Difficult situation regarding management of her atrial fibrillation. She has persistent atrial fibrillation of unclear duration having failed cardioversion at [facility] in September 2023. She tells me that plan at that time was to
focus on rate control however rate control has been very difficult despite high dose beta-lorraine therapy. Furthermore her clinical status is complicated by heart failure with reduced ejection fraction with declining left ventricular systolic
function reduced from an EF of 30 to 35% in September to 20 to 25% 3 days ago. It is likely that atrial fibrillation is playing a significant role in her cardiomyopathy and heart failure.
Choice of antiarrhythmic drug therapy is further complicated over concern for drug drug interaction given her need for continued methadone use.
I had a long discussion with the patient where we outlined the possibility of moving towards EP study and ablation/PVI. I described the procedure as well as possible risks. She tells me she would like some more time to think about this. I will
check back with her again later today. If she decides against ablation I would recommend initiating low-dose amiodarone with close monitoring of her QT corrected interval given ongoing use of methadone and then eventually consider repeat attempt at
cardioversion however if she truly failed cardioversion in September (was not able to obtain any sinus rhythm) then it is possible we may have the same result down the road. I am reluctant to initiate a type III antiarrhythmic drug over concern for drug
drug interaction and significantly prolonging QT interval.
Total time 55 min
Addendum entered and electronically signed by LORETO Rosas 01/10/24 10:22:
- Discussing atrial fibrillation ablation with EP
Original Note:
Today's Communication / Plan
-
Remains in A-fib with rapid ventricular response despite high-dose beta-lorraine. Consider initiation of amiodarone, low-dose with close monitoring of QTc given concern for interaction with methadone.
Impression / Plan
-
PCP: scheduled to see new PCP at [facility] on 01/10/24
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
Impression:
Afib with RVR on admission
Paroxysmal to persistent Afib
unsuccessful PRISCILA/CV at [facility] 09/2023
Elevated Troponin
Acute on chronic HFrEF
CM EF 30-35% by PRISCILA at [facility] 09/16/23 and down to 20-25% by echo at 01/07/24
Hypertension
Troponin elevation
h/o opiate use disorder now on daily methadone
Hyperglycemia and pre-diabetes with HgbA1c 6%
PRISCILA 09/2023: [facility] study, EF 30-35%, no WMA, no AMINTA thrombus, interatrial septum was intact with agitated saline, normal RV size and function, mild aortic regurgitation, mod MR, mild TR, no pericardial effusion.
Echo 01/07/24: EF 20-25%, mod MR, mod-sev TR, RVSP 50-55.
Telemetry reviewed: Atrial fibrillation, heart rates 80s to 140s with PVCs, occasional burst to 160s
Plan:
-Records obtained and patient previously had attempted PRISCILA/CV at [facility] in [place], [place] 09/2023, but CV was not successful at 250 J, 300 J and then 360 J x 2. She was d/c'd to home on Eliquis 5 mg BID, aspirin 81 mg daily, Toprol XL 100
mg daily, Entresto unknown dose BID, Cymbalta 60 mg daily, Jardiance 10 mg daily, metformin 1000 mg BID, rosuvastatin 5 mg daily and methadone, 26 mg daily. Patient eventually ran out of meds and stopped taking them. Patient then moved from [place] to
live with her father locally and she was brought to [facility] 01/06/24.
-After reviewing previous medical records it sounds like patient is more persistent Afib.
-Ventricular rate still are elevated despite increase in Toprol to 100 mg p.o. twice daily on 01/08/24 to try to obtain better rate control. Review of telemetry shows heart rates 80s to 140s with PVCs, occasional burst and heart rate 160s.
-would consider initiation of Amiodarone, which would need to be started at a low dose without load and QTc monitored closely as pt is also on Methadone. Reviewed case with pharmacy:Amiodarone may enhance the QT prolonging effect of methadone.
Alternatives to this combination should be considered. If use is necessary, monitor for QTc interval prolongation and arrhythmias.
If amiodarone started should keep K> 4 and Mag> 2. Patient will require close follow-up in our office for EKG monitoring for prolonged QTc and general cardiac follow-up on complex medical regimen
-Digoxin could also be used for rate control but would also have to closely monitor digoxin levels and electrolytes.
-Cont Eliquis 5 mg BID (age 63, Cre 0.9), appreciate help of CM on checking cost which will only be $4.60 for a 90 day supply at her mail away pharmacy or same lundberg for a 30 day supply at local pharmacy
-Patient with acute HF on admission. EF now 20-25% and was 30-35% earlier this year. Patient previously treated with Toprol XL, Entresto and Jardiance.
-volume status improving, wt down 7 lbs since admisson and pt denies SOB, PND, orthopnea. Transitioned to oral Lasix 40 mg daily over weekend.
-started on Farxiga 10 mg daily. Pt previously tolerated Jardiance. Farxiga will also be $4.60 90 day mail away or 30 day local.
- started on Entresto but stopped due to hypotension. Ideally would like to re-attempt intiation of this medication, or consider low dose ARB as BP lowering effects may be less pronounced. BP is currently ranging 90s to 130s systolically.
Entresto will also be $4.60 90 day mail away or 30 day local.
-remains on Toprol 100 mg bid
-Troponin was 0.084 on admission without chest pain or WMA on echo. Will manage as a nonischemic myocardia injury Troponin elevation
HPI: 63-year-old female with past medical history of paroxysmal atrial fibrillation, hypertension, past opioid dependence now on daily methadone presented to ED 01/06/2024 with worsening dyspnea on exertion, shortness of breath, and lower
extremity edema. She was found to be in rapid A-fib with a heart rates up to 140 bpm. Troponin was 0.084, BNP 16,000, TSH within normal limits. Chest x-ray showed small to moderate left pleural effusion and increased interstitial markings.
She reports having atrial fibrillation 3 to 4 years ago and again in September 2023, when was seen at [facility]. She underwent a cardioversion and was started on Metoprolol ER 100 mg daily and Eliquis. It sounds like she stopped Eliquis
after 4-6 weeks after she ran out of pills but has continued on Metoprolol.
She was previously living in [place] and recently moved in with her father in this area. She had been homeless and living in motels for months prior to moving in with her father.
Progress Note - Chute Operator
Subjective
Date of Service: January 10, 2024
wants to go home
denies SOB, palps, lightheadedness, chest pain, PND, orthopnea
HRs in afib remain elevated, ranging 80s-140s, with bursts to 160s, despite Toprol 100 mg bid
Objective
Labs:
01/10/24 02:25
01/10/24 02:25
Labs
Hgb 13.6 g/dL (12.0-16.0) 01/10/24 02:25
Hct 43.2 % (37.0-47.0) 01/10/24 02:25
Plt Count 351 10^3/uL (130-400) 01/10/24 02:25
Sodium 139 mmol/L (135-145) 01/10/24 02:25
Potassium 4.5 mmol/L (3.5-5.1) 01/10/24 02:25
BUN 35 mg/dl (7-17) H 01/10/24 02:25
Creatinine 0.8 mg/dL (0.6-1.0) 01/10/24 02:25
Glucose 105 mg/dl (70-99) H 01/10/24 02:25
Troponins
01/07/24 01/07/24 01/07/24
07:05 15:45 21:45
Troponin I Cancelled Cancelled Cancelled
Vital Signs and I&O:
Vital Signs
Temp Pulse Resp BP Pulse Ox
97.6 F 95 16 130/69 94
01/10/24 06:55 01/10/24 07:00 01/10/24 06:55 01/10/24 06:53 01/10/24 08:15
Vital Signs
Temp Pulse Resp BP Pulse Ox
97.6 F 95 16 130/69 94
01/10/24 06:55 01/10/24 07:00 01/10/24 06:55 01/10/24 06:53 01/10/24 08:15
Intake & Output
01/08/24 01/09/24 01/10/24 01/11/24
06:59 06:59 06:59 06:59
Intake Total 1100 / 1100 150 / 150 200 / 200
Output Total 2725 / 2725 1025 / 1025
Balance -1625 / -1625 -875 / -875 200 / 200
Physical Exam
Physical Exam
GEN: No distress, awake, Ox3
HEENT: supple, anicteric, mmm
LUNGS: CTA, no wheezes/rales
CV: irreg, irreg. S1/S2, 1/6 syst LSB
ABD: soft, BS+, NT/ND
EXT: trace B/L LE edema
NEURO: Gross non-focal
SKIN: No rash
--- NOTE | 2024-01-10 10:54 | CM ---
Reviewed chart. Met with Ms. Khalil to review discharge plans. She is hoping to be able to go home soon. She states she has been ambulating in her room. Prior to admission she resides with her father and his spouse in a two story home with four
steps to enter. She has a full flight of steps to get to bedroom/full bathroom. She has a powder room on the first floor. Prior to admission she was independent with ambulation and adls. She has a prescription plan and uses [facility]. She
goes to [facility] to get her Methadone. She goes every two weeks. Medical work-up n progress. The discharge plan is to return home with her father and his spouse when medically stable.
[2024-01-10 10:59] VITALS: BP 96/72
--- NOTE | 2024-01-10 12:19 | PN.CDI ---
CDI
- -
CDI:
Physician Documentation Request
Admit Date: 01/06/24 23:34
Dear Doctor Kayode,
H&P reports patient's history of paroxysmal atrial fib.
01/07 cardiology note states ' Paroxysmal to persistent Afib'
01/09 cardiology progress note states ' I had a long discussion with the patient where we outlined the possibility of moving towards EP study and ablation/PVI. I described the procedure as well as possible risks. She tells me she would like some
more time to think about this'
01/09 Hospitalist note refers to the atrial fib as permanent.
In an attempt to clarify potentially conflicting documentation, please clarify the patients atrial fibrillation:
Paroxysmal atrial fibrillation - terminates spontaneously or with intervention within 7 days of onset
Persistent atrial fibrillation - episodes of continuous AF that last more than 7 days and do not self-terminate
Permanent atrial fibrillation - when a decision has been made to accept the presence of AF and there is no further attempt to restore or maintain sinus rhythm
Other - please specify
Use of terms such as suspected, likely, concern for, or probable (associated with a specific diagnosis that is being evaluated, monitored, or treated as if it exists) are acceptable and can be coded in the inpatient setting, when documented at the
time of discharge.
Thank you,
Katy Barnes RN, BSN
CDI Specialist
tiger text
Please use your independent medical judgment in providing your response.
[2024-01-10 16:24] VITALS: BP 94/83
[2024-01-10] MEDS: CRESTOR 10 MG PO (17:32)
--- NOTE | 2024-01-10 18:29 | PTCARENOTE ---
Pt noted to be off youth nutritional monitor, when going to check on her, she wasn't in her room. Pt was found outside, in front of cardiac rehab 'getting some fresh air'. Pt asked not to leave the floor again on her own.
[2024-01-10 19:31] VITALS: BP 95/67
[2024-01-10] MEDS: TOPROL XL PO (19:32)
[2024-01-10 23:28] VITALS: BP 114/81
[2024-01-11] VITALS (22 sets, daily range): BP systolic 73–124; BP diastolic 43–94; BMI 27.4
--- NOTE | 2024-01-11 03:10 | PTCARENOTE ---
Pt received at change of shift. VSS, Afib on tele with HR in 90s.. No complaints of pain at this time. Plan of care discussed and pt. verbalizes understanding and remains NPO since midnight for scheduled PRISCILA/ablation in AM. Pt refuses assistance
with ambulating and ambulates independently in room with steady gait. Frequent rounding maintained to ensure pt. safety. Can make needs known. Call de la vgea within reach.
[2024-01-11 03:53] LABS: Blood Urea Nitrogen 38 mg/dl (7-17); Calcium 9.4 mg/dl (8.4-10.2); Carbon Dioxide 33 mmol/L (22-30); Chloride 98 mmol/L (98-107); Estimated Creatinine Clearance 59 ml/min; Glucose 108 mg/dl (70-99); Magnesium 2.3 mg/dl (1.6-2.3); Potassium 4.6 mmol/L (3.5-5.1); Sodium 140 mmol/L (135-145); eGFR > 60.00
[2024-01-11] MEDS: METHADONE 100 MG/10 ML 26 MG PO (08:32)
[2024-01-11] MEDS: ELIQUIS PO (09:35)
[2024-01-11] MEDS: FARXIGA PO (09:35)
[2024-01-11] MEDS: TOPROL XL PO (09:35)
[2024-01-11] MEDS: LASIX PO (09:35)
--- NOTE | 2024-01-11 11:42 | PTCARENOTE ---
Rec'd Pt s/p PRISCILA at 1115, A,A+Ox3, VSS, offers no complaints. She is aware that she is NPO for ablation later today.
[2024-01-11 14:13] LABS: ACT-LR - POC 310 Seconds (116-155)
[2024-01-11 14:41] LABS: ACT-LR - POC 364 Seconds (116-155)
[2024-01-11 15:11] LABS: ACT-LR - POC 316 Seconds (116-155)
--- NOTE | 2024-01-11 15:21 | ITS.CL.ABL ---
Judge - Ablation
Ablation
Procedure Report:
ELECTROPHYSIOLOGIC STUDY AND POSSIBLE ABLATION
DATE: January 11, 2024
Primary Painter Bottom: Dr Mala Cuevas
INDICATION:
Symptomatic Atrial Fibrillation.
Persistent
HISTORY: See H and P.
Symptomatic AF, poorly controlled with attempted medical therapy.
She has persistent atrial fibrillation of unclear duration having failed cardioversion at [facility] in September 2023. She tells me that plan at that time was to focus on rate control however rate control has been very difficult
despite high dose beta-lorraine therapy. Furthermore her clinical status is complicated by heart failure with reduced ejection fraction with declining left ventricular systolic function reduced from an EF of 30 to 35% in September to 20 to 25% 3 days
ago. It is likely that atrial fibrillation is playing a significant role in her cardiomyopathy and heart failure.
Choice of antiarrhythmic drug therapy is further complicated over concern for drug drug interaction given her need for continued methadone use.
She presents now for EP study and ablation
HAS-BLED: 1
Abnormal Liver Function
CHADSVASc:
CHF, NYHA Class 3, LVEF 20%
F Gender
PRESENTING RHYTHM: AF
HISTORY: See H and P.
Symptomatic AF, poorly controlled with attempted medical therapy.
Transesophageal echocardiogram earlier today demonstrated no left atrial appendage thrombus. There is severe left ventricular systolic dysfunction with ejection fraction 20 to 25%, global hypokinesis, normal RV size and function mild to moderate
mitral regurgitation, moderate tricuspid regurgitation and mild aortic insufficiency.
ANTICOAGULATION: Apixaban 5 mg twice daily
'TIME-OUT': called and confirmed.
SEDATION/ANESTHESIA: provided via the anesthesia department using general anesthesia.
PROCEDURE:
Ultrasound Guidance performed by me was utilized for femoral venous Vascular Access b/l.
A decapolar CS catheter was placed within the CS for mapping and pacing.
The intracardiac ultrasound catheter was positioned in the RA for continuous intracardiac ultrasound imaging.
Heparin bolus and infusion to target ACT at 300 -350 seconds was administered. Transseptal puncture was performed. This entailed advancing a sheath with dilator into the superior vena cava and withdrawing both (monitoring intracardiac ultrasound,
fluoroscopy and tip pressure) with the tip oriented toward the atrial septum. The fossa ovalis was engaged (indicated by sudden displacement of the sheath tip as well as tenting of the fossa seen on intracardiac ultrasound).
The FarapAlphatec Spine transseptal system was used. Left atrial catheter position was confirmed by echocardiographic imaging and fluoroscopy followed by RF delivery using the [employer] system resulting in successful LA access with pressure monitoring
demonstrating LA pressure waveforms (LA mean pressure 11 mm Hg). The sheath was advanced over the dilator and positioned in the left atrium.
The Adreima Grid multipolar mapping catheter was initially positioned through the transseptal sheath for high density mapping.
Geometry and voltage mapping was performed using the Adreima multipolar grid catheter. Ensite-X was utilized for three-dimensional electroanatomical mapping.
A 3-D map was created using Ensite-X in Voxel mode.
The FarapAlphatec Spine PFA catheter and system was used for cardiac ablation. Catheter positioning was guided and confirmed using both I.C.E. and fluoroscopy.
PV isolation approach was used to electrically isolate each PV ostia (Left common PV, RSPV, RIPV).
Additional energy applications/additional ablation set was required to accomplish wide area circumferential ablation around each of the pulmonary vein sets and additionally ablation to accomplish LA posterior wall ablation.
During left atrial ablation atrial fibrillation regularized into an atrial tachycardia/atrial flutter at cycle length 220 ms
Entrainment from the lateral wall of the right atrium demonstrated post pacing interval minus tachycardia cycle length of 40 ms, entrainment from the septal low left atrium found post pacing interval minus tachycardia cycle length of 0 ms and
entrainment from the lateral low left atrium found long post pacing interval minus tachycardia cycle length. Activation mapping of the left atrium found earliest activation at the low septal left atrium. The tachycardia was felt to likely
represent a right atrial tachycardia with breakthrough from right to left at the coronary sinus. Next high density electroanatomical mapping of the right atrium along with entrainment from the CTI demonstrated CTI dependent counterclockwise right
atrial flutter. The Farapulse catheter was removed from the left atrium and positioned at the lateral CTI visualized both fluoroscopically and under intracardiac echocardiographic imaging. Intravenous pressors elevated her blood pressure to
approximately 140/100 then 500 mg of intravenous nitroglycerin was administered to reduce the risk of pulsed field ablation induced coronary vasospasm. Pulsed electric field energy was then delivered to the CTI resulting in interruption of the
tachycardia circuit and mosque of sinus rhythm. Activation mapping demonstrated bidirectional block across the CTI line with medial to lateral and lateral to medial conduction times of 140 ms.
I.C.E. :
Pre-Ablation Post-Ablation
LVEF: 15�20% 15�20%
WMA: Global Global
Pericardial effusion: Trivial posterior Trivial posterior, unchanged
COMPLICATIONS:
None
SUMMARY:
- Mapping and ablation to isolate the PVs
- Additional AF ablation set after PVI.
- Mapping and ablation of second tachycardia
- 3-D Electroanatomical Mapping
- Intracardiac Ultrasound
Post ablation, I discussed today's findings and results with the patient's father, Wojciech.
RECOMMENDATIONS:
- Observe in monitored bed.
- Maintain oral anticoagulation.
- Continue beta-lorraine while we assess heart rates in sinus rhythm, may need to reduce beta-lorraine dose if she is significantly bradycardic
- Office visit with me in 3 months.
- Continue cardiovascular care with Dr Mala Cuevas
Copy to: Dr Mala Cuevas
--- NOTE | 2024-01-11 17:21 | PTCARENOTE ---
Rec'd Pt s/p ablation, A,A+Ox3, R femoral dsg D+I. Denies pain. Pt instructed to keep her head on pillow and R leg straight. + R DP pulse.
[2024-01-11] MEDS: CRESTOR 10 MG PO (18:03)
[2024-01-11] MEDS: ELIQUIS 5 MG PO (20:12)
[2024-01-11] MEDS: TOPROL XL 100 MG PO (20:12)
--- NOTE | 2024-01-12 01:16 | PTCARENOTE ---
Pt received start of shift, HR SR/SB. R groin site CDI, Figure 8 sutures removed ~2009. Soft, no hematoma. Reinforced medication adherence and activity restrictions w/ pt. R pedal pulses normal. Pt states understanding. Pt denies any CP or SOB.
[2024-01-12 03:51] VITALS: BP 104/80
[2024-01-12 04:08] VITALS: BMI 28.3
[2024-01-12 04:13] LABS: Hematocrit 37.9 % (37.0-47.0); Hemoglobin 11.9 g/dL (12.0-16.0); Mean Corp Hgb Conc. 31.4 g/dL (33.0-37.0); Mean Corpuscular Hgb 23.9 pg (27.0-31.0); Mean Corpuscular Volume 76.3 fL (81.0-99.0); Mean Platelet Volume 10.6 fL (7.4-10.4); Platelet Count 261 10^3/uL (130-400); Red Blood Cell Count 4.97 10^6/uL (4.20-5.40); Red Cell Dist. Width 16.1 % (11.5-14.5); White Blood Cell Count 9.4 10^3/uL (4.8-10.8)
[2024-01-12 04:42] LABS: Blood Urea Nitrogen 29 mg/dl (7-17); Calcium 8.9 mg/dl (8.4-10.2); Carbon Dioxide 25 mmol/L (22-30); Chloride 102 mmol/L (98-107); Estimated Creatinine Clearance 68 ml/min; Glucose 108 mg/dl (70-99); Magnesium 2.1 mg/dl (1.6-2.3); Potassium 5.1 mmol/L (3.5-5.1); Sodium 137 mmol/L (135-145); eGFR > 60.00
[2024-01-12 07:01] VITALS: BP 79/67
[2024-01-12 07:02] VITALS: BP 105/67
--- NOTE | 2024-01-12 07:37 | W.PN.HOSP.TC ---
Addendum entered and electronically signed by Catalina Headley MD 01/12/24 08:43:
paroxysmal to persistent afib --> s/p ablation
Original Note:
Today's Communication/Plan
-
follow up further cardiology recommendations, possible DC today
Assessment / Plan
Assessment / Plan
Physical Exam
General: Well Developed, Well Nourished, No Apparent Distress and Comfortable
HEENT: NormoCephalic, Anicteric, Moist mucous membranes and Atraumatic
Respiratory: Clear
Cardiac: S1/S2, Irregular Rhythm and Tachycardia
Breast: Deferred by me
GI: Soft, Non Tender, Non Distended and Normal Bowel Sounds
Rectal: Deferred by Provider
Genito-urinary: Deferred by me
Musculoskeletal: No Clubbing, No Cyanosis, edema resolved; right groin without hematoma; mild oozing on gauze
Skin: Warm
Neuro: AO x 3
Hematologic/Lymphatic: No Lymphadenopathy
Psych: Calm
63-year-old female with past medical history of opiate dependence currently on methadone, history of paroxysmal atrial fibrillation status post ablation in who presented to the emergency department with worsening dyspnea on exertion,
shortness of breath and increasing lower extremity edema. Comes into the emergency department and found to be in rapid atrial fibrillation at a rate of 141, mild troponin elevation of 0.084, found to have pulmonary edema on chest x-ray. Has
elevated BNP.
TTE 01/07/24
CONCLUSIONS
Severely reduced left ventricular systolic function with global hypokinesis
Left ventricular ejection fraction is visually 20-25%.
Normal left ventricular wall thickness.
Biatrial dilatation
Moderate mitral regurgitation.
Aortic sclerosis without stenosis. Mild aortic regurgitation.
Moderate-severe tricuspid regurgitation.
Estimated pulmonary artery pressure of 50-55 mmHg. Assuming a right atrial
pressure of 15 mmHg. The IVC is mildly dilated and does not collapse. I
Pleural effusion present. No pericardial effusion.
No prior study available for comparison.
PRISCILA 01/11/24
CONCLUSIONS
Left ventricular ejection fraction is 20-25%. Global hypokinesis.
Normal right ventricular size and function.
No thrombus detected in the left atrial appendage.
Mild to moderate mitral regurgitation.
Mild aortic regurgitation.
Moderate tricuspid regurgitation.
PLAN:
1. Permanent Atrial Fibrillation
-s/p Ablation in september and attempts at cardioversion
-s/p amio gtt and increasing Metoprolol dosage with persistent RVR with decision made to do another ablation on 01/11/24
-EKG with NSR this AM
-Eliquis 5mg BID
-monitor HR on Metop
-F/U further cardiology recs
#Acute HFrEF
--Likely secondary to uncontrolled afib and non compliance
-EF - 20-25% (was 30-35% earlier this year)
--switch IV lasix to PO, now euvolemic
- metoprolol as above
- initiate GDMT, farxiga
- Hold Entresto to make room in Metop dosing
# Troponin Elevation
-most likely non ischemic myocardial injjury
- Trop 0.084. No acute ischemia on ECG. Suspect rate related elevation. No chest pain.
#Valvular abnormalities
-Moderate mitral regurgitation
-Moderate to severe tricuspid regurgitation
#Opiate use
-Methadone
- continue 26mg daily
DVT PPX - on ac
Code Status - Full Code
Anticipated Discharge: Within 24 hours
Subjective/Interval History
-
Date of Service: January 12, 2024
feeling well
wants to go home
Objective Data
-
Labs:
Laboratory Results
01/12/24
04:00
WBC 9.4
Hgb 11.9 L
Hct 37.9
Plt Count 261 D
Sodium 137
Potassium 5.1
Chloride 102
Carbon Dioxide 25
BUN 29 H
Creatinine 0.8
Glucose 108 H
Calcium 8.9
Vital Signs:
Vital Signs
Temp Pulse Resp BP Pulse Ox
97.9 F 75 20 104/80 100
01/12/24 06:59 01/12/24 04:00 01/12/24 06:59 01/12/24 03:51 01/12/24 06:59
Review of Systems
-
History Source: Patient
All other systems: Reviewed and negative
Data Reviewed
-
Diagnostic Radiology: Report Reviewed by me
Labs: Labs Reviewed by me
[2024-01-12 07:42] VITALS: BP 116/73
[2024-01-12] MEDS: FARXIGA 10 MG PO (07:44)
[2024-01-12] MEDS: TOPROL XL PO (07:44)
[2024-01-12] MEDS: ELIQUIS 5 MG PO (07:44)
[2024-01-12] MEDS: METHADONE 100 MG/10 ML 26 MG PO (07:45)
[2024-01-12] MEDS: LASIX 40 MG PO (07:45)
[2024-01-12] MEDS: TOPROL XL 50 MG PO (07:50)
--- NOTE | 2024-01-12 08:40 | PTCARENOTE ---
Assumed care. Patient sitting up in bed. Denies pain, SB HR in the 50's, BP 116/73. Toprol dose adjusted, 50 mg PO given this morning. Right groin site old serious drainage, soft and non-tender. Eating breakfast tin bed, call de la vega in reach
--- NOTE | 2024-01-12 09:35 | W.PN.CARDCBS ---
Addendum entered and electronically signed by Chase Lemus MD 01/12/24 12:10:
Patient seen, interviewed and examined by me.
Well-appearing, no acute distress
Regular rate and rhythm with normal S1 and S2, no S3 no S4. There is a grade 1/6 apical holosystolic murmur and no rubs. PMI is Laterally and inferiorly displaced.
Lungs are clear to auscultation bilaterally without wheezes rales or rhonchi.
Abdomen soft nontender nondistended with normoactive bowel sounds
Extremities show trace pretibial edema bilaterally no clubbing or cyanosis.
Neurologic exam is grossly nonfocal.
Agree with advanced practice professionals assessment and plan as noted below.
telemetry shows she has been attaining sinus rhythm/sinus bradycardia.
I reviewed with her yesterday's findings at EP study and her ablation results.
She is modestly bradycardic on high-dose beta-lorraine which had been uptitrated to control ventricular rates previously. Now that we have obtained sinus rhythm after her ablation, will reduce Toprol-XL from 100 mg twice daily to 50 mg twice
daily. It is possible but not definite that her cardiomyopathy is tachycardia/atrial arrhythmia mediated. She should continue guideline directed medical therapy for heart failure with reduced ejection fraction with outpatient follow-up and
reevaluation of LVEF in several months.
All of her questions have been answered.
Stable for discharge to home from a cardiology standpoint.
Original Note:
Today's Communication / Plan
-
Likely d/c to home today
VN
Impression / Plan
-
PCP: scheduled to see new PCP at [facility] on 01/10/24
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 Cuevas
Impression:
Afib with RVR on admission
Paroxysmal to persistent Afib
unsuccessful PRISCILA/CV at [facility] 09/2023
s/p PVI 01/11/24
New start to chronic Eliquis therapy
Elevated Troponin
Acute on chronic HFrEF
CM EF 30-35% by PRISCILA at [facility] 09/16/23 and down to 20-25% by echo at 01/07/24
Hypertension
Troponin elevation
h/o opiate use disorder now on daily methadone
Hyperglycemia and pre-diabetes with HgbA1c 6%
PRISCILA 09/2023: RWJ study, EF 30-35%, no WMA, no AMINTA thrombus, interatrial septum was intact with agitated saline, normal RV size and function, mild aortic regurgitation, mod MR, mild TR, no pericardial effusion.
Echo 01/07/24: EF 20-25%, mod MR, mod-sev TR, RVSP 50-55.
Plan:
-Patient is s/p inpatient PVI 01/11/24, ECG 01/12/24 reviewed by me and shows SR with nonspecific T wave changes.
-Bradycardia noted on tele so decreased Toprol XL to 50 mg BID on 01/12/24 AM
-Patient is back on Eliquis 5 mg BID. Appreciate help of on checking costs of meds, all meds are $4.60/month for 90 day mail away or 30 day local pick-up.
-Of note, AAD therapy is complicated by CM and methadone therapy.
-Patient with acute HF on admission. EF now 20-25% and was 30-35% earlier this year. Patient previously treated with Toprol XL, Entresto and Jardiance and then stopped all meds while she was living in [facility], but now in a stable living situation
with her father locally so will restart all meds.
-Cont Toprol XL 50 mg BID
-Cont Farxiga 10 mg daily
-Entresto started, but most doses skipped and then placed on hold due to ongoing hypotension. If patient has an improved BP at follow up office visit then will try to restart Entresto and co-pay would be $4.60/month for 90 day mail away or 30 day
local pick-up.
-Cont Lasix 40 mg PO daily. Patient was not taking a diuretic prior to admission. Weight is up 5 lbs overnight despite ongoing Lasix therapy, will ask for a recheck of weight on 01/12/24.
-Check BMP in 1 week as an outpatient, lab slip left on chart.
-Troponin was 0.084 on admission without chest pain or WMA on echo. Will manage as a nonischemic myocardia injury Troponin elevation
-Patient can potentially be d/c'd 01/12/24 pending recheck of weight and if patient agreeable when the time comes. Asked CM to arrange for VN given CHF and new meds.
HPI: 63-year-old female with past medical history of paroxysmal atrial fibrillation, hypertension, past opioid dependence now on daily methadone presented to ED 01/06/2024 with worsening dyspnea on exertion, shortness of breath, and lower
extremity edema. She was found to be in rapid A-fib with a heart rates up to 140 bpm. Troponin was 0.084, BNP 16,000, TSH within normal limits. Chest x-ray showed small to moderate left pleural effusion and increased interstitial markings. She
reports having atrial fibrillation 3 to 4 years ago and again in September 2023, when was seen at [facility]. She underwent a cardioversion and was started on Metoprolol ER 100 mg daily and Eliquis. It sounds like she stopped Eliquis after
4-6 weeks after she ran out of pills but has continued on Metoprolol. She was previously living in [place] and recently moved in with her father in this area. She had been homeless and living in motels for months prior to moving in with her
father. Records obtained and patient previously had attempted PRISCILA/CV at [facility] in [place], [place] 09/2023, but CV was not successful at 250 J, 300 J and then 360 J x 2. She was d/c'd to home on Eliquis 5 mg BID, aspirin 81 mg daily, Toprol
XL 100 mg daily, Entresto unknown dose BID, Cymbalta 60 mg daily, Jardiance 10 mg daily, metformin 1000 mg BID, rosuvastatin 5 mg daily and methadone, 26 mg daily. Patient eventually ran out of meds and stopped taking them. Patient then moved from
[place] to live with her father locally and she was brought to [facility] 01/06/24.
Progress Note - Child Welfare Specialist
Subjective
Date of Service: January 12, 2024
Feels well, no pain or palpitations
Objective
Labs:
01/12/24 04:00
01/12/24 04:00
Labs
Hgb 11.9 g/dL (12.0-16.0) L 01/12/24 04:00
Hct 37.9 % (37.0-47.0) 01/12/24 04:00
Plt Count 261 10^3/uL (130-400) D 01/12/24 04:00
Sodium 137 mmol/L (135-145) 01/12/24 04:00
Potassium 5.1 mmol/L (3.5-5.1) 01/12/24 04:00
BUN 29 mg/dl (7-17) H 01/12/24 04:00
Creatinine 0.8 mg/dL (0.6-1.0) 01/12/24 04:00
Glucose 108 mg/dl (70-99) H 01/12/24 04:00
Vital Signs and I&O:
Vital Signs
Temp Pulse Resp BP Pulse Ox
97.9 F 75 20 104/80 100
01/12/24 06:59 01/12/24 04:00 01/12/24 06:59 01/12/24 03:51 01/12/24 06:59
Vital Signs
Temp Pulse Resp BP Pulse Ox
97.9 F 75 20 104/80 100
01/12/24 06:59 01/12/24 04:00 01/12/24 06:59 01/12/24 03:51 01/12/24 06:59
Intake & Output
01/10/24 01/11/24 01/12/24 01/13/24
06:59 06:59 06:59 06:59
Intake Total 200 / 200
Balance 200 / 200
Physical Exam
Physical Exam
GEN: NAD. AAOx3
HEENT: mmm
LUNGS: No audible wheeze
CV: SR on tele
ABD: ND
EXT: Trace edema B/L
NEURO: Gross non-focal
SKIN: No rash
[2024-01-12 10:29] VITALS: BMI 28.4
[2024-01-12 11:25] VITALS: BP 101/76
--- NOTE | 2024-01-12 12:54 | CM ---
Chart reviewed. Patient is independent of ADLS, lives with her father and in a 2 STH, 4 [facility]LR[employer], O DME. Referral placed to [facility]. Plan is for the patient to return home with [facility]. CM to follow
--- NOTE | 2024-01-12 13:50 | W.DS.TRANS ---
DC Summary - Temperature Regulator
-
Discharge Instructions:
Sleep Apnea Risk Low
Discharge Diagnosis/Procedures Atrial fibrillation, ablation, acute heart
failure with reduced ejection fraction
Diet 2 Gram Sodium,Restrict fluids to 48 oz
Activity Other activity
Driving Restrictions No driving for 24 hours
Bathing Restrictions OK to Shower
Blood Work Non-fasting blood work in 1 week
Other Services VN
Specialty Instructions Weigh Daily
Instructions: *DCA Heart Failure Instructions
Stand-Alone Forms: DC Instructions- Cath/EP Lab
Changes to Home Medications: Yes
Discharge Medications:
DC Medications w/original date entered in Categorical
methadone 26 mg DAILY Substance abuse disorder 01/06/24
apixaban 5 mg tablet (Eliquis) 5 mg PO BID Blood clot prevention/tx #60 tabs 01/12/24
dapagliflozin propanediol 10 mg tablet 10 mg PO DAILY Heart Failure #30 tabs 01/12/24
furosemide 40 mg tablet 40 mg PO DAILY Heart Failure #30 tabs 01/12/24
metoprolol succinate 50 mg tablet,extended release 24 hr 50 mg PO BID Heart Failure #60 tabs 01/12/24
rosuvastatin 10 mg tablet 10 mg PO QPM High cholesterol #30 tabs 01/12/24
Home Medication Changes
Stop Metoprolol 100mg daily - this is replaced with 50mg twice a day
You are newly started on:
Eliquis 5mg twice a day
Lasix 40mg daily
Rosuvastatin 10mg in evening
Dapagliflozin (Farxiga) 10mg daily
Pending Results: No
--- NOTE | 2024-01-12 14:23 | W.DCSUMMARY ---
Discharge Summary
Discharge Data
Date of Admission: 01/06/24
Date of Discharge: 01/12/24
-
Pending Results: No
Hospital Course
Discharging Physician : Dr. Catalina Headley
Disposition : Home
Principal Discharge diagnosis : Atrial Fibrillation with rapid ventricular rate status post ablation
Hospital Course :
Ms. Leticia moss is a 63 year old woman with past medical history of opiate dependence currently on methadone, history of paroxysmal atrial fibrillation status post ablation in who presented to the emergency department with worsening
dyspnea on exertion, shortness of breath and increasing lower extremity edema. She was found to be in rapid atrial fibrillation at a rate of 141, mild troponin elevation of 0.084, found to have pulmonary edema on chest x-ray.
She was admitted to medicine with cardiology consulting.
Regarding heart failure, echo repeated with EF 20-25% (was 30-35% earlier this year). She was diuresed and started on Lasix 40mg PO QD, Farxiga 10mg PO QD.
Regarding atrial fibrillation, initially attempted rate control but difficulty controlling rates. She is s/p ablation on 01/11/24. Metoprolol dosing changed from 100mg XL QD to 50mg XL BID.
She was outpatient cardiology follow up.
Time spent on discharge was 35 minutes.
Important imaging findings :
TTE 01/07/24
CONCLUSIONS
Severely reduced left ventricular systolic function with global hypokinesis
Left ventricular ejection fraction is visually 20-25%.
Normal left ventricular wall thickness.
Biatrial dilatation
Moderate mitral regurgitation.
Aortic sclerosis without stenosis. Mild aortic regurgitation.
Moderate-severe tricuspid regurgitation.
Estimated pulmonary artery pressure of 50-55 mmHg. Assuming a right atrial
pressure of 15 mmHg. The IVC is mildly dilated and does not collapse. I
Pleural effusion present. No pericardial effusion.
No prior study available for comparison.
PRISCILA 01/11/24
CONCLUSIONS
Left ventricular ejection fraction is 20-25%. Global hypokinesis.
Normal right ventricular size and function.
No thrombus detected in the left atrial appendage.
Mild to moderate mitral regurgitation.
Mild aortic regurgitation.
Moderate tricuspid regurgitation.
Procedure findings :
Discharge Plan
-
Patient Disposition: Home with Home Care
Discharge Diagnosis/Procedures: Atrial fibrillation, ablation, acute heart failure with reduced ejection fraction
Condition: Good
Diet: 2 Gram Sodium and Restrict fluids to 48 oz
Activity: Other activity
Driving Restrictions: No driving for 24 hours
Bathing Restrictions: OK to Shower
Blood Work: Non-fasting blood work in 1 week
Other Services: VN
Specialty Instructions: Weigh Daily- Call MD for wt gain/loss 3 lbs overnight/5 lbs in 1 week
Instructions: *DCA Heart Failure Instructions
Stand Alone Forms: DC Instructions- Cath/EP Lab
Referrals:
[facility] [Outside]
NONE,* [Family Provider] -
Mala Cueavs, [Active] -
Aleida Bruce CRNP [Specified Professional Personl] - 04/03/24 8:20 am (Cardiology followup appointment)
Additional Discharge Medication Instructions: Stop Metoprolol 100mg daily - this is replaced with 50mg twice a day
You are newly started on:
Eliquis 5mg twice a day
Lasix 40mg daily
Rosuvastatin 10mg in evening
Dapagliflozin (Farxiga) 10mg daily
Prescriptions:
New
furosemide 40 mg Tablet
40 mg PO DAILY Qty: 30 11RF
metoprolol succinate 50 mg Tablet Extended Release 24 Hr
50 mg PO BID Qty: 60 11RF
rosuvastatin 10 mg Tablet
10 mg PO QPM Qty: 30 11RF
Eliquis 5 mg Tablet
5 mg PO BID Qty: 60 11RF
dapagliflozin propanediol 10 mg Tablet
10 mg PO DAILY Qty: 30 11RF
Continued
methadone
26 mg DAILY
Discontinued
metoprolol succinate 100 mg Tablet Extended Release 24 Hr
100 mg PO DAILY
Discharge Orders:
Discharge Patient (As Directed); Ordered 01/12/24
Ordered By: Catalina Headley
Care Plan Goals
Care Plan Goals:
Problem: Readiness for enhanced knowledge related to diagnosis and treatment plan
Goal: Understand your diagnosis and treatment plan needs, including medications if applicable.
Instructions: Know your diagnosis, underlying causes and treatment plan options, including medications if applicable. Consult with your health care team to learn about your diagnosis and treatment plan, including medications if applicable.
Discharge Date and Time
Print Language: SENEGALESE
[2024-01-12] MEDS: AFLURIA (36 mos+) 2024-2025 FORMULA 0.5 ML IM (14:27)
--- NOTE | 2024-01-12 15:26 | PTCARENOTE ---
Patient discharged to home. All belongings and paperwork given to patient. Discharge teaching completed, patient verbalized understanding. Patient escorted to main lobby with staff.
== END 2024-01-12 16:00 | disposition home health service (06) | DRG 273 ==
LOC: IVU 23:34
PROVIDERS: Internal Medicine; Internal Medicine Cardiovascular Disease; Nurse Practitioner; ADMITTING PHYSICIAN Internal Medicine; ATTENDING PHYSICIAN Student in an Organized Health Care Education/Training Program; CONSULT PHYSICIAN Internal Medicine Cardiovascular Disease; EMERGENCY PHYSICIAN Emergency Medicine
PROC: 02583ZZ Destruction of Conduction Mechanism, Percutaneous Approach (ICD-10-PCS; 2024-01-11)
PROC: 02K83ZZ Map Conduction Mechanism, Percutaneous Approach (ICD-10-PCS; 2024-01-11)
DX: I48.19 Other persistent atrial fibrillation (principal); I50.21 Acute systolic (congestive) heart failure; F11.20 Opioid dependence, uncomplicated; J91.8 Pleural effusion in other conditions classified elsewhere; I5A Non-ischemic myocardial injury (non-traumatic); I47.19 Other supraventricular tachycardia; I11.0 Hypertensive heart disease with heart failure; I70.0 Atherosclerosis of aorta; E11.9 Type 2 diabetes mellitus without complications; F32.A Depression, unspecified; I08.3 Combined rheumatic disorders of mitral, aortic and tricuspid valves; I42.9 Cardiomyopathy, unspecified; I49.3 Ventricular premature depolarization; W06.XXXA Fall from bed, initial encounter; Y92.230 Patient room in hospital as the place of occurrence of the external cause; E78.00 Pure hypercholesterolemia, unspecified; F90.9 Attention-deficit hyperactivity disorder, unspecified type; Z87.891 Personal history of nicotine dependence
CPT/HCPCS: 71045; 80048; 80053; 80061; 81003; 81015; 83036; 83690; 83735; 83880; 84443; 84484; 85025; 85027; 85347; 86850; 86900; 86901; 87070; 90686; 93005; 93306; 93312; 93320; 93325; 93655; 93656; 93657; 96374; 96375; 99291; C1730; C1732; C1733; C1766; C1892; C1894; G0008

== ENCOUNTER → 2024-01-28 10:50 | Outpatient (REF) | payer MEDICARE, MEDICAID, SELFPAY ==
[2024-01-28 13:28] LABS: Blood Urea Nitrogen 22 mg/dl (7-17); Calcium 9.7 mg/dl (8.4-10.2); Carbon Dioxide 33 mmol/L (22-30); Chloride 98 mmol/L (98-107); Glucose 106 mg/dl (70-99); Potassium 4.5 mmol/L (3.5-5.1); Sodium 141 mmol/L (135-145); eGFR > 60.00
== END ==
LOC: REG 10:50
PROVIDERS: ATTENDING PHYSICIAN Nurse Practitioner
DX: I50.23 Acute on chronic systolic (congestive) heart failure (principal)
CPT/HCPCS: 36415; 80048